=== PATIENT | female | born 1960 | race Two or more races ===

== ENCOUNTER 2021-10-25 08:43 | Outpatient (REF) | payer MEDICAID, SELFPAY ==
--- NOTE | ~2021-10-25 | XR_ITS ---
EXAMINATION: XR KNEE, RIGHT CLINICAL INFORMATION: Bilateral knee pain. COMPARISON: Radiograph dated 12/23/2010. TECHNIQUE: AP, lateral, tunnel, and sunrise views of the right knee. FINDINGS: Bones and soft tissues are normal. No fracture or joint effusion. Alignment is anatomic. Joint spaces are well maintained. No abnormal soft tissue calcification. XR/XR knee LT 4V IMPRESSION: Normal right knee. EXAMINATION: XR KNEE, LEFT CLINICAL INFORMATION: As above. COMPARISON: Regressed dated 12/23/2010. TECHNIQUE: AP, lateral, tunnel, and sunrise views of the left knee. FINDINGS: Bones and soft tissues are normal. No fracture or joint effusion. Alignment is anatomic. Joint spaces are well maintained. No abnormal soft tissue calcification. IMPRESSION: Normal left knee.
--- NOTE | ~2021-10-25 | XR_ITS ---
EXAMINATION: XR KNEE, RIGHT CLINICAL INFORMATION: Bilateral knee pain. COMPARISON: Radiograph dated 12/23/2010. TECHNIQUE: AP, lateral, tunnel, and sunrise views of the right knee. FINDINGS: Bones and soft tissues are normal. No fracture or joint effusion. Alignment is anatomic. Joint spaces are well maintained. No abnormal soft tissue calcification. XR/XR knee RT 4V IMPRESSION: Normal right knee. EXAMINATION: XR KNEE, LEFT CLINICAL INFORMATION: As above. COMPARISON: Regressed dated 12/23/2010. TECHNIQUE: AP, lateral, tunnel, and sunrise views of the left knee. FINDINGS: Bones and soft tissues are normal. No fracture or joint effusion. Alignment is anatomic. Joint spaces are well maintained. No abnormal soft tissue calcification. IMPRESSION: Normal left knee.
--- NOTE | ~2021-10-25 | XR_ITS ---
EXAMINATION: XR TIBIA AND FIBULA, LEFT CLINICAL INFORMATION: Swelling, mass and lump. COMPARISON: None TECHNIQUE: AP and lateral views of the left tibia and fibula were obtained. FINDINGS: The bones and soft tissues are normal. No fracture. No osseous lesions. No radiopaque foreign body is seen. XR/XR tibia fibula LT 2V IMPRESSION: Normal left tibia and fibula. No obvious mass lesion is noted. There is no radiopaque foreign body seen.
--- NOTE | ~2021-10-25 | XR_ITS ---
EXAMINATION: XR LUMBOSACRAL SPINE CLINICAL INFORMATION: Lumbago and sciatica. COMPARISON: Radiographs dated 08/25/2018. TECHNIQUE: AP and lateral views of the lumbar spine and lateral view of the lumbosacral junction. FINDINGS: There is bony demineralization. Vertebral body heights and alignment are normal. The disc spaces are well-maintained. No acute fracture or spondylolisthesis is seen. This multi-level marked lower thoracic and mild lumbar spondylosis, stable from prior. The posterior elements are intact. The paravertebral soft tissues are unremarkable. XR/XR lumbar spine 2-3V IMPRESSION: 1. No acute fracture or spondylolisthesis is seen. 2. The lumbar disc spaces are well-maintained. 3. There is multi-level thoracolumbar spondylosis. 4. There is bony demineralization.
== END 2021-10-25 08:44 | disposition home or self-care (01) ==
LOC: HO.XRAY 08:43
PROVIDERS: PCP Internal Medicine; Visit Provider Internal Medicine
DX: M25.561 Pain in right knee (principal); M25.562 Pain in left knee; M54.41 Lumbago with sciatica, right side; M54.42 Lumbago with sciatica, left side; R22.42 Localized swelling, mass and lump, left lower limb
CPT/HCPCS: 72100; 73564; 73590

== ENCOUNTER 2021-11-22 10:09 | Outpatient (REF) | payer MEDICAID, SELFPAY ==
--- NOTE | ~2021-11-22 | MM_ITS ---
EXAMINATION: MM SCREENING DIGITAL BREAST TOMOSYNTHESIS, BILATERAL CLINICAL INFORMATION: Screening. Asymptomatic. The lifetime risk of breast cancer based on the Tyrer-Cuzick Model is 5.2%. COMPARISON: Mammography: May 31, 2019 and studies dating back to March 15, 2012 TECHNIQUE: Digital breast tomosynthesis is performed in both the craniocaudal and mediolateral oblique views along with computer-aided detection (CAD). Synthesized 2D images are generated from the tomosynthesis. FINDINGS: There are scattered areas of fibroglandular density (ACR BI-RADS breast composition Category b). There are no significant masses, abnormal calcifications, or other abnormalities. MM/MM tomosynthesis screening BI IMPRESSION: There are no significant changes from prior study. ASSESSMENT: BI-RADS 1: Negative RECOMMENDATION: Routine annual mammography screening. This patient's information was entered into a reminder system with a target due date for their next mammogram.
== END 2021-11-22 10:10 | disposition home or self-care (01) ==
LOC: HO.MAMMO 10:09
PROVIDERS: PCP Internal Medicine; Visit Provider Internal Medicine
DX: Z12.31 Encounter for screening mammogram for malignant neoplasm of breast (principal)
CPT/HCPCS: 77063; 77067

== ENCOUNTER → 2022-07-26 13:12 | Outpatient (REF) | payer MEDICAID, SELFPAY ==
--- NOTE | 2022-07-26 13:15 | CA_ITS ---
Transthoracic Echocardiogram Patient (Last, First, Middle): Sonya Elena, Gender: Female Date of : 1960 Age: 61 Procedure Date: 07/26/2022 Procedure Type: Transthoracic Echocardiogram Location: OP Height: 154. cm Weight: 88.91 kg BSA: 1.86 m2 Heart Rate: 72 bpm BP: 120 / 70 mmHg Value Stream Manager: KATIE Referring MD: Ashwini Johnson MD Symptoms: PULMONARY VALVE DISORDER I37.0 Study Quality: Adequate ECG Rhythm: Sinus Conclusions: - The left ventricular systolic function is low normal. The calculated ejection fraction is 53% by biplane method. - There is mild calcification of the aortic valve. - There is mild mitral valve regurgitation. - There is mild tricuspid valve regurgitation. - There is mild pulmonary valve stenosis. Findings Left Ventricle Normal left ventricular cavity size. There is normal left ventricular wall thickness. The left ventricular systolic function is low normal. The calculated ejection fraction is 53% by biplane method. There is no evidence of regional wall motion abnormalities. E/E prime ratio is >15, consistent with elevated filling pressures. Evidence suggests grade I (mild) diastolic dysfunction. Right Ventricle Normal right ventricular cavity size and systolic function. Atria Both atria are normal in size. Aortic Valve There is a normal trileaflet aortic valve. There is mild calcification of the aortic valve. There is no aortic valve stenosis. There is no aortic valve regurgitation. Mitral Valve The mitral valve appears normal. There is mild mitral valve regurgitation. There is no mitral valve stenosis. Pulmonic Valve There is no pulmonic valve regurgitation. There is mild stenosis. Peak PV gradient is calculated at 23 mmHg. Tricuspid Valve Normal tricuspid valve structure. There is mild tricuspid valve regurgitation. There is no evidence of pulmonary hypertension. Great Vessels The asc aorta is normal in size. Small plaque is seen in the sino tubular ridge. Venous The inferior vena cava is normal in size and collapses greater than 50% with inspiration. Pericardium/Pleural There is no evidence of pericardial effusion. Prior Study Comparison Changes noted compared to prior study dated: 04/13/2015. Pulmonic stenosis gradients lower than prior study. Underestimation possible. Measurements 2D Linear Measurements IVSd: 0.84 0.6-0.9/0.6-1.0 cm LVIDd: 4.44 3.9-5.3/4.2-5.9 cm LVIDd Index: 2.39 2.4-3.2/2.2-3.1 cm/m2 LVIDs: 3.19 2.0-3.6 cm LVPWd: 1.27 0.7-1.1 cm LA Diam: 3.30 2.7-3.8/3.0-4.0 cm LAIDs Index: 1.77 1.5-2.3 cm/m2 LV Mass: 200.55 67-162/88-224 g LV Mass Index: 107.82 43-95/49-115 g/m2 LVOT Diam: 1.90 3.0+(-)1.3 cm 2D Systolic Function EF 4C: 51.00 >55% EF 2C: 56.80 >55% EF BiP: 52.50 >55% Mitral Valve MV Pk E: 1.05 MV PK A: 0.97 MV Decel Time: 197.00 E/A: 1.10 E'Lateral: 6.53 E'Medial: 5.66 E/E' Med: 18.60 E/E' Lat: 16.10 PHT: 58.00 MVA PHT: 3.79 Decel Dale: 5.32 Aortic Valve AoV Pk Chacorta: 1.41 AoV Mn Chacorta: 1.00 AoV VTI: 0.32 AoV Pk Grad: 8.00 Aov Mn Grad: 5.00 ANA Cont.VTI: 1.95 LVOT LVOT Pk Chacorta: 1.00 LVOT Mn Chacorta: 0.75 LVOT VTI: 0.22 LVOT Pk Grad: 4.00 LVOT Mn Grad: 2.00 LVOT Diam: 1.90 LVOT Area: 2.84 Diastolic Function MV Pk E: 1.05 MV Pk A: 0.97 E/A: 1.10 E'Medial: 5.66 E/E' Med: 18.60 E' Laterial: 6.53 E/E' Lat: 16.10 Right Ventricle TAPSE (mm): 18.30 TVS' Chacorta: 12.40 Tricuspid Valve TR Pk Chacorta: 2.48 TR Pk Grad: 25.00 RA Press: 3.00 RVSP: 28.00 Great Vessels Aorta Sinus of Valsalva: 3.20 2.0-3.5 cm Ao Asc: 3.00 2.1-3.4 cm Pulmonary Valve PV Pk Chacorta: 2.39 PV Min Chacorta: 1.71 Peak PV Grad: 23.00 PV Mn Grad: 13.00 Shunting QP:QS: 0.90 Updated in Other Vendor System with Status of Final Santhosh Hensley MD electronically signed on 07/27/2022 11:52:07 AM with status of Final
== END ==
LOC: HO.CARD 13:12
PROVIDERS: Visit Provider Internal Medicine
DX: I37.0 Nonrheumatic pulmonary valve stenosis (principal)
CPT/HCPCS: 93306

== ENCOUNTER → 2022-11-01 09:50 | Outpatient (BNVA) | payer MEDICAID, SELFPAY | PROVIDERS: PCP Internal Medicine; Visit Provider Physician Assistant | DX: Z12.11 Encounter for screening for malignant neoplasm of colon (principal); Z78.9 Other specified health status | CPT/HCPCS: 99202 ==

== ENCOUNTER 2022-11-24 11:31 | Outpatient (REF) | payer MEDICAID, SELFPAY ==
--- NOTE | ~2022-11-24 | MM_ITS ---
EXAMINATION: MM SCREENING DIGITAL BREAST TOMOSYNTHESIS, BILATERAL CLINICAL INFORMATION: Screening. Asymptomatic. The lifetime risk of breast cancer based on the Tyrer-Cuzick Model is 3.9%. COMPARISON: Mammography: This study is compared with prior exams dating back to 2018. TECHNIQUE: Digital breast tomosynthesis is performed in both the craniocaudal and mediolateral oblique views along with computer-aided detection (CAD). Synthesized 2D images are generated from the tomosynthesis. FINDINGS: There are scattered areas of fibroglandular density (ACR BI-RADS breast composition Category b). There are no significant masses, abnormal calcifications, or other abnormalities. MM/MM tomosynthesis screening BI IMPRESSION: No mammographic evidence of malignancy. ASSESSMENT: BI-RADS BI-RADS 1 - Negative RECOMMENDATION: Routine annual mammography screening. 1 year F/U This examination should not preclude the clinical evaluation of a suspicious palpable abnormality. This patient's information was entered into a reminder system with a target due date for their next mammogram.
== END 2022-11-24 11:32 | disposition home or self-care (01) ==
LOC: HO.MAMMO 11:31
PROVIDERS: PCP Internal Medicine; Visit Provider Internal Medicine
DX: Z12.31 Encounter for screening mammogram for malignant neoplasm of breast (principal)
CPT/HCPCS: 77063; 77067

== ENCOUNTER → 2022-11-24 12:15 | Outpatient (BNV) | payer MEDICAID, SELFPAY | PROVIDERS: PCP Internal Medicine; Visit Provider Radiology Diagnostic Radiology | DX: Z12.31 Encounter for screening mammogram for malignant neoplasm of breast (principal) | CPT/HCPCS: 77063; 77067 ==

== ENCOUNTER 2022-12-27 09:26 | Outpatient (AMB) | payer MEDICAID, SELFPAY ==
[2022-12-27 09:27] VITALS: BP 122/68; PULSE 64; BMI 42.7
--- NOTE | 2022-12-27 09:27 | A.OFFVIS_ITS ---
Intake Vital Signs 12/27/22 09:27 Height 5 ft Weight 218 lb 7.649 oz BMI 42.7 BP 122/68 Blood Pressure Location Lt brachial Position Sitting Pulse 64 Pulse Source Pulse Oximeter Intake Visit Reasons: DM/lvm Intake Note: New patient present today for Diabetes Mellitus. Referred by PCP. Last Diabetic Eye exam: 2020 Last Podiatry Visit: None Random Glucose: 99 mg/dl HgA1C: 8.4 % French Binder Required: Yes French Binder Language: Kinyarwanda Information Interpreted: non-clinical & clinical Accompanied by: Self / Same As Patient Allergies metformin Adverse Reaction (Unknown, Verified 12/27/22 09:31) GI upset Medication List - Last Reconciled 12/27/22 by Tucker Godoy MD aspirin (Adult Low Dose Aspirin) 81 mg PO DAILY atorvastatin 20 mg PO BEDTIME cholecalciferol (vitamin D3) 10 mcg PO DAILY dulaglutide (Trulicity) 1.5 mg subcut QWEEK empagliflozin (Jardiance) 25 mg PO QAM insulin glargine (Lantus U-100 Insulin) 35 units subcut QPM lisinopril 20 mg PO DAILY peg-electrolyte soln 420 gram 240 mL PO ONCE PRN 1 day HPI HPI Comments History of Present Illness Details 62 YO F who is seen in consultation for T2DM at the request of PCP. Initially diagnosed with T2DM in since 2000 . Saw endo many yrs ago Was initially started on treatment with metformin.Caused GI upset Current regimen Jardiance 25 mg QD. Lantus 35 units Trulicity 1.5 mg Qwkly Checks sugars sporadically. There 3 blood sugars present in the meter Average sugar: 119 Range: 84-192 Most recent A1C 8.4, . Family history of T2DM in son, moter, sister- Type 2 DM . Has eyes checked yearly, last eye exam 2 yrs ago Has appt 05/2023 , denies retinopathy. Has neuropathy, Not sees podiatry. Denies nephropathy, on MORGAN/ARB. . Has HLD, on statin. . Denies CAD. Yes Had diabetes education yrs ago . PFSH Surgical History Hx of colonoscopy Social History Household Members: Spouse Alcohol intake: never Patient Tobacco Use Status: Never used Tobacco Current occupational status: disabled Physical Exam Vital Signs: Last Vital Signs Pulse 64 12/27/22 09:27 BP 122/68 12/27/22 09:27 BMI result Body Mass Index 42.7 Absence of Cushingoid features. Absence of acromegalic features. Neck exam reveals nl size thyroid about 15 gms. No thyroid nodules palpable. No carotid bruits present. Lungs CTA. Heart S1 S2, Reg R/R. No M/R/ G. Skin exam reveals absence of vitiligo or acanthosis nigricans. Abdominal exam reveals Soft NT/ND with NA BS. No organomegaly present. Neck Other: . Extrem Other: Visual exam of foot performed. No ulcerations or open lesions. No onchomycosis, no callouses.Pulses 2 + distally Sensation intact to monofilament exam. Vibratory sensation sensed is intact with 128 Hz tuning fork Results AMB Hemoglobin A1c AMB Hemoglobin A1c 8.4 % Last Edit by Tomeka Peres on 12/27/22 09:49 Results Reviewed Results Reviewed: 12/27/22 09:39 Glucose, Whole Blood Routine Laboratory Last Values Glucose (Clinic) 99 mg/dL (60-115) 12/27/22 09:39 Hgb A1c (Clinic) 8.4 % (4.0-6.0) H 12/27/22 09:44 Assessment & Plan Assessment & Plan (1) Diabetes: Code(s): E11.9 - Type 2 diabetes mellitus without complications Plan: 62-year-old female with a history of type 2 diabetes being treated with Jardiance with poor glycemic control and no known microvascular or macrovascular complications. Plan is that the patient check her point cares pre and post meals. I offered to prescribe a Omayra 2 but the patient declined. I cannot make any adjustments to the patient's regimen today because of his lack of data. Will refer to internal audit senior manager and ui software engineer. Explained to patient with the help of the security intern the relationship a poor glycemic control to development and progression of complications Orders: Orders AMB Hemoglobin A1c Today E11.9 - Type 2 diabetes mellitus without complications Referrals Diabetes Education Referral E11.9 - Type 2 diabetes mellitus without complications Nutrition/Dietitian Referral E11.9 - Type 2 diabetes mellitus without complications Coding Level of Care Code New Pt Level 5 (90085) Diagnoses Diabetes E11.9 Time Spent (min) 60 Comment A total of 60 minutes was spent reviewing chart, seeing patient and dictating
[2022-12-27 09:43] LABS: Glucose, Whole Blood 99 mg/dL (60-115)
== END 2022-12-27 10:37 | disposition home or self-care (01) ==
PROVIDERS: PCP Internal Medicine; Visit Provider Internal Medicine Endocrinology, Diabetes & Metabolism
DX: E11.65 Type 2 diabetes mellitus with hyperglycemia (principal)
CPT/HCPCS: 99205

== ENCOUNTER → 2022-12-27 09:26 | Outpatient (BNVA) | payer MEDICAID, SELFPAY | PROVIDERS: PCP Internal Medicine; Visit Provider Internal Medicine Endocrinology, Diabetes & Metabolism | DX: E11.9 Type 2 diabetes mellitus without complications (principal); Z79.4 Long term (current) use of insulin | CPT/HCPCS: 82947; 83036; 99202 ==

== ENCOUNTER 2023-04-16 17:53 | Emergency (ER) | payer MEDICAID, SELFPAY ==
--- NOTE | ~2023-04-16 | XR_ITS ---
EXAMINATION: Right third toe CLINICAL INFORMATION: Third toe pain. COMPARISON: None available. TECHNIQUE: 3 views of the right toes were obtained. FINDINGS: There are no fractures or dislocations. No joint effusion is identified. No bone, joint or soft tissue abnormality is demonstrated. XR/XR toe RT min 2V IMPRESSION: Normal right third toe.
[2023-04-16 18:19] VITALS: BP 155/55; PULSE 83; RESP 20; TEMP 36.4; O2SAT 97; BMI 43.0
--- NOTE | 2023-04-16 18:21 | ED_ITS ---
HPI - Extremity Injury (Lower) General Chief Complaint: Skin/Abscess/Foreign Body Stated Complaint: RT middle toe inj Time Seen by Provider: 04/16/23 19:49 Source: patient and RN notes reviewed Mode of arrival: ambulatory Limitations: no limitations History of Present Illness HPI Narrative: This is a 62-year-old female, with a history of diabetes, presenting to the emergency department with complaints of bruising to right 3rd toe. She states that she accidentally dropped something on her toe 3 days ago. Reports pain with movement and with palpation. No fevers or chills. no other complaints or concerns at this time. MD complaint: foot injury Onset (ago): hour(s) Other symptoms: none Related Data Home Medications Medication Instructions Recorded Confirmed aspirin 81 mg tablet,delayed 81 mg PO DAILY 12/27/22 12/27/22 release (Adult Low Dose Aspirin) atorvastatin 20 mg tablet 20 mg PO BEDTIME 12/27/22 12/27/22 cholecalciferol (vitamin D3) 10 10 mcg PO DAILY 12/27/22 12/27/22 mcg (400 unit) capsule dulaglutide 1.5 mg/0.5 mL 1.5 mg subcut QWEEK 12/27/22 12/27/22 subcutaneous pen injector (Trulicity) empagliflozin 25 mg tablet 25 mg PO QAM 12/27/22 12/27/22 (Jardiance) insulin glargine 100 unit/mL 35 unit subcut QPM 12/27/22 12/27/22 subcutaneous solution (Lantus U-100 Insulin) lisinopril 20 mg tablet 20 mg PO DAILY 12/27/22 12/27/22 Previous Rx's Medication Instructions Recorded peg-electrolyte solution 420 gram 240 ml PO ONCE PRN laxative effect 11/01/22 oral solution 1 day #4,000 mL clindamycin HCl 150 mg capsule 150 mg PO TID 7 days #21 caps 02/23/23 sulfamethoxazole 800 1 tab PO BID 7 days #14 tabs 02/23/23 mg-trimethoprim 160 mg tablet (Bactrim DS) acetaminophen 500 mg tablet 500 mg PO Q6H PRN pain #30 tabs 04/16/23 (Tylenol Extra Strength) Allergies Allergy/AdvReac Type Severity Reaction Status Date / Time metformin AdvReac Unknown GI upset Verified 12/27/22 09:31 Review of Systems Review of Systems: Yes all other systems are reviewed and are negative [facility] Past Medical History Attestation statement: The following information was validated with the patient. Surgical History Hx of colonoscopy Social History Social History Household Members: Spouse Alcohol intake: never Patient Tobacco Use Status: Never used Tobacco Current occupational status: disabled Physical Exam Vital Signs: Vital Signs: Last Vital Signs Temp 97.6 F 04/16/23 19:46 Pulse 73 04/16/23 19:46 Resp 18 04/16/23 19:46 BP 132/63 04/16/23 19:46 Pulse Ox 96 04/16/23 19:46 O2 Del Method Room Air 04/16/23 19:46 BMI result Body Mass Index 43.0 Const: Other: General: Awake, alert, and oriented X3. No acute distress. HEENT: Normal inspection CVS: Normal heart rate and rhythm. Pulses normal. Respiratory: No respiratory distress Skin: Warm, dry, no rashes noted to exposed skin. Normal skin color. Normal skin turgor. Extremities: Right 3rd digit ecchymosis with tenderness to palpation. No erythema, open wounds or sores. No evidence of infection Neuro: Oriented X 3. No motor deficit. No sensory deficit. Medical Decision Making Medical Decision Making MDM Narrative: This is a 21-ecyn-hwc-female, hx of diabetes, presenting to the emergency department for evaluation of right 3rd toe bruising. She states that she dropped a stereo on her toe 3 days ago. ecchymosis noted to the right 3rd toe with tenderness palpation. Xray obtained revealing no fracture. Sxs consistent with contusion. Advised to closely monitor region. Pt given return precautions. Pt understands and agrees with plan. Stable for d/c. Differential Diagnosis Differential Diagnoses: The differential diagnosis associated with the presentation includes Fracture, contusion, sprain, strain Radiology Impression Discussion of test interpretation with radiology: I have reviewed the radiologist's reading. Radiologist Impression: EXAMINATION: Right third toe CLINICAL INFORMATION: Third toe pain. COMPARISON: None available. TECHNIQUE: 3 views of the right toes were obtained. FINDINGS: There are no fractures or dislocations. No joint effusion is identified. No bone, joint or soft tissue abnormality is demonstrated. XR/XR toe RT min 2V IMPRESSION: Normal right third toe. Dictated By: Miguel Ángel Araujo MD Discharge Plan Discharge Clinical Impression: Contusion of toe of right foot Patient Disposition: Home, Self-Care Instructions: Foot Contusion (ED) Additional Instructions: Sonya was seen today for discoloration of her toe. This is consistent with a bruise As she accidentally dropped something onto her toe. This does not appear to be infected. X-rays do not show a fracture. She may take tylenol as needed for symptoms. Please keep close eye on toe, please return if any new new or worsening symptoms occur including but not limited to redness, swelling, fevers or chills. Mar?a fue vista hoy por la decoloraci?n del dedo del pie. [place] es consistente con un hematoma porque accidentalmente elvira? caer algo en duarte dedo del pie. Deborah no parece estar infectado. Las radiograf?as no muestran chandler fractura. Est? atento a romero pies y regrese si presenta alg?n s?ntoma nuevo o que empeora, incluidos, entre otros, enrojecimiento, hinchaz?n, fiebre o escalofr?os. Prescriptions: New acetaminophen [Tylenol Extra Strength] 500 mg tablet 500 mg PO Q6H PRN (Reason: pain) Qty: 30 0RF No Action clindamycin HCl 150 mg capsule 150 mg PO TID 7 Days Qty: 21 0RF sulfamethoxazole-trimethoprim [Bactrim DS] 800-160 mg tablet 1 tab PO BID 7 Days Qty: 14 0RF peg-electrolyte soln 420 gram recon soln 240 ml PO ONCE PRN (Reason: laxative effect) 1 Days Qty: 4000 0RF Rx Instructions: Start at 6:00pm the evening before procedure, drink one 8oz glass every 15 minutes until complete aspirin [Adult Low Dose Aspirin] 81 mg tablet,delayed release (DR/EC) 81 mg PO DAILY atorvastatin 20 mg tablet 20 mg PO BEDTIME Jardiance 25 mg tablet 25 mg PO QAM lisinopril 20 mg tablet 20 mg PO DAILY cholecalciferol (vitamin D3) 10 mcg (400 unit) capsule 10 mcg PO DAILY insulin glargine [Lantus U-100 Insulin] 100 unit/mL solution 35 unit subcut QPM Trulicity 1.5 mg/0.5 mL pen injector 1.5 mg subcut QWEEK Interventions: ED Discharge Assessment Last Done: 04/16/23 20:11 Discharge Date/Time: 04/16/23 20:11
[2023-04-16 19:46] VITALS: BP 132/63; PULSE 73; RESP 18; TEMP 36.4; O2SAT 96
== END 2023-04-16 20:11 | disposition home or self-care (01) ==
PROVIDERS: Emergency Provider Internal Medicine; PCP Internal Medicine
DX: S90.121A Contusion of right lesser toe(s) without damage to nail, initial encounter (principal); Y29.XXXA Contact with blunt object, undetermined intent, initial encounter; Y93.9 Activity, unspecified; Y92.9 Unspecified place or not applicable; Y99.9 Unspecified external cause status
CPT/HCPCS: 73660; 99282; 99283

== ENCOUNTER 2023-06-20 11:05 | Outpatient (REF) | payer MEDICAID, SELFPAY ==
--- NOTE | ~2023-06-20 | XR_ITS ---
EXAMINATION: XR LUMBOSACRAL SPINE CLINICAL INFORMATION: Pain of 6 months duration, without trauma. COMPARISON: Lumbar spine radiographs dated 10/17/2021. TECHNIQUE: AP, bilateral oblique and lateral views of the lumbar spine and lateral view of the lumbosacral junction. FINDINGS: There is bony demineralization. There is a mild to moderate rotatory dextroscoliosis. There is a transitional lumbar vertebra, with sacralization of the L5 vertebral body and a rudimentary L5-S1 disc. Adopting this numbering methodology, there is a 4 mm anterolisthesis at L3-L4. The remaining disc spaces are relatively well-maintained. There is multi-level mild to moderate thoracolumbar spondylosis. There is facet arthropathy at L3-L4 and L4-L5. The paravertebral soft tissues are unremarkable. XR/XR lumbar spine 2-3V IMPRESSION: 1. There is transitional lumbar methodology. Please note numbering methodology, as methods may vary. 2. There is moderate degenerative disc disease at L3-L4. 3. There is multi-level mild to moderate thoracolumbar spondylosis. 4. There is facet arthropathy at L3-L4 and L4-L5. 5. There is a mild to moderate lumbar rotatory dextroscoliosis.
[2023-06-20 13:37] LABS: Basophils Absolute Auto 0.1 X10*3/uL (0.0-0.2); Basophils Percent Auto 0.9 % (0-2); Eosinophils Percent Auto 0.5 % (0-4); Hematocrit 46.1 % (37.0-47.0); Hemoglobin 14.7 g/dl (12.0-16.0); Imm Gran Abs Auto 0.02 X10*3/uL (0.00-0.03); Imm Gran Pct Auto 0.3 % (0.0-0.4); Lymphocytes Absolute Auto 1.7 X10*3/uL (1.2-4.9); Lymphocytes Percent Auto 22.4 % (20-40); MANUAL DIFF FLAG SCAN; Mean Corpuscular HGB Conc 31.9 g/dl (31.0-35.0); Mean Corpuscular Hemoglobin 26.3 pg (27.0-33.0); Mean Corpuscular Volume 82.3 fL (80.0-98.0); Monocytes Absolute Auto 0.4 X10*3/uL (0.1-1.2); Monocytes Percent Auto 5.9 % (2-11); Neutrophils Absolute Auto 5.3 x10*3/uL (2.0-8.3); PLT CLUMP 1; Red Cell Distribution Width 14.5 % (11.0-16.0); SCAN SMEAR FLAG 1
[2023-06-20 13:38] LABS: White Blood Count 7.5 X10*3/uL (4.8-10.8)
[2023-06-20 13:56] LABS: Mean Platelet Volume 12.3 fL (9.4-12.3); Platelet Count 176 X10*3/uL (160-400); SLIDE REVIEW VERIFIED
[2023-06-20 14:20] LABS: Alanine Aminotransferase 23 U/L (0-31); Alkaline Phosphatase 69 U/L (39-117); Anion Gap 12 (12-20); Aspartate Amino Transferase 32 U/L (5-31); Bilirubin Total 0.2 mg/dL (0.0-1.0); Blood Urea Nitrogen 18 mg/dL (9-16); Calcium 9.7 mg/dL (8.4-10.2); Carbon Dioxide 29 mmol/L (22-29); Chloride 105 mmol/L (96-108); Cholesterol 219 mg/dL (<200); Estimated Glomerular Filt Rate > 60; Glucose Random 180 mg/dL (60-115); HDL Cholesterol 72 mg/dL (>40); LDL Cholesterol Calculated 114 mg/dL (<100); Potassium 5.1 mmol/L (3.3-5.1); Sodium 141 mmol/L (135-145); Triglycerides 167 mg/dL (<150)
[2023-06-20 14:29] LABS: TSH reflex Free T4 1.72 uIU/mL (0.32-4.0)
== END 2023-06-20 11:06 | disposition home or self-care (01) ==
LOC: HO.HHCL 11:05
PROVIDERS: Visit Provider Nurse Practitioner Family
DX: E11.49 Type 2 diabetes mellitus with other diabetic neurological complication (principal); M54.16 Radiculopathy, lumbar region
CPT/HCPCS: 36415; 72100; 80053; 80061; 84443; 85025

== ENCOUNTER 2023-08-08 11:58 | Outpatient (REF) | payer MEDICAID, SELFPAY ==
--- NOTE | ~2023-08-08 | US_ITS ---
EXAMINATION: US LOWER EXTREMITY DUPLEX, BILATERAL CLINICAL INFORMATION: Leg numbness/claudication TECHNIQUE: Real-time ultrasound and Doppler techniques (integrating B-mode 2-D vascular images, Doppler spectral analysis and color flow Doppler imaging) were utilized to interrogate the lower extremities. COMPARISON: None FINDINGS: RIGHT LEG: Common femoral artery: 112 cm/s, biphasic Profunda femoris artery: 129 cm/s, biphasic Superficial femoral artery (proximal): 134 cm/s, biphasic Superficial femoral artery (mid): 97 cm/s, biphasic Superficial femoral artery (distal): 92 cm/s, biphasic Popliteal artery: 104 cm/s, Triphasic Anterior tibial artery: 95 cm/s, biphasic Posterior tibial artery: 67 cm/s, biphasic Peroneal artery: 40 cm/s, biphasic Dorsalis pedis artery: 93 cm/s, biphasic LEFT LEG: Common femoral artery: 112 cm/s, biphasic Profunda femoris artery: 106 cm/s, biphasic Superficial femoral artery (proximal): 113 cm/s, biphasic Superficial femoral artery (mid): 98 cm/s, biphasic Superficial femoral artery (distal): 70 cm/s, biphasic Popliteal artery: 102 cm/s, biphasic Anterior tibial artery: 81 cm/s, biphasic Posterior tibial artery: 66 cm/s, biphasic Peroneal artery: 43 cm/s, biphasic Dorsalis pedis artery: 58 cm/s, biphasic US/US arterial duplex LE BI IMPRESSION: 1. Mild right lower extremity peripheral vascular disease. 2. There is no evidence of any hemodynamically significant lower extremity arterial disease by pressure, waveform or duplex Doppler criteria at rest.
== END 2023-08-08 11:59 | disposition home or self-care (01) ==
LOC: HO.US 11:58
PROVIDERS: PCP Internal Medicine; Visit Provider Internal Medicine
DX: I73.9 Peripheral vascular disease, unspecified (principal); R20.0 Anesthesia of skin; E11.65 Type 2 diabetes mellitus with hyperglycemia; E11.42 Type 2 diabetes mellitus with diabetic polyneuropathy; Z79.4 Long term (current) use of insulin
CPT/HCPCS: 93925

== ENCOUNTER 2023-11-21 12:00 | Emergency (ER) | payer MEDICAID, SELFPAY ==
--- NOTE | ~2023-11-21 | XR_ITS ---
Indication: Lateral pain, swelling, fall EXAMINATION: Left shoulder, left knee, right ankle, right foot. Comparison left knee dated 10/25/2021 2 views of the left shoulder do not demonstrate evidence for an acute fracture or dislocation. 4 views of the left knee demonstrate a radiopaque foreign body giant believe is in the medial anterior soft tissues. This is linear and measures 6 mm. No evidence for an acute fracture or dislocation.. This is approximately 4 mm deep to the skin. 2 detail views of the right ankle demonstrate transverse fracture of the distal fibula. Mildly distracted. Fracture line is occurring below the level of the plafond. Soft tissue swelling is seen laterally. Spurring at the level of the insertion of the plantar aponeuroses on the calcaneus 3 views of the right foot proper does not demonstrate convincing evidence for an acute fracture or dislocation distally. XR/XR knee LT 4V IMPRESSION: Multiple studies. Distracted Transverse fracture of the distal fibula below the level the plafond Once again linear Foreign body which could represent the end of the needle within the medial soft tissues of the left knee.
--- NOTE | ~2023-11-21 | XR_ITS ---
Indication: Lateral pain, swelling, fall EXAMINATION: Left shoulder, left knee, right ankle, right foot. Comparison left knee dated 10/25/2021 2 views of the left shoulder do not demonstrate evidence for an acute fracture or dislocation. 4 views of the left knee demonstrate a radiopaque foreign body giant believe is in the medial anterior soft tissues. This is linear and measures 6 mm. No evidence for an acute fracture or dislocation.. This is approximately 4 mm deep to the skin. 2 detail views of the right ankle demonstrate transverse fracture of the distal fibula. Mildly distracted. Fracture line is occurring below the level of the plafond. Soft tissue swelling is seen laterally. Spurring at the level of the insertion of the plantar aponeuroses on the calcaneus 3 views of the right foot proper does not demonstrate convincing evidence for an acute fracture or dislocation distally. XR/XR shoulder LT min 2V IMPRESSION: Multiple studies. Distracted Transverse fracture of the distal fibula below the level the plafond Once again linear Foreign body which could represent the end of the needle within the medial soft tissues of the left knee.
--- NOTE | ~2023-11-21 | XR_ITS ---
Indication: Lateral pain, swelling, fall EXAMINATION: Left shoulder, left knee, right ankle, right foot. Comparison left knee dated 10/25/2021 2 views of the left shoulder do not demonstrate evidence for an acute fracture or dislocation. 4 views of the left knee demonstrate a radiopaque foreign body giant believe is in the medial anterior soft tissues. This is linear and measures 6 mm. No evidence for an acute fracture or dislocation.. This is approximately 4 mm deep to the skin. 2 detail views of the right ankle demonstrate transverse fracture of the distal fibula. Mildly distracted. Fracture line is occurring below the level of the plafond. Soft tissue swelling is seen laterally. Spurring at the level of the insertion of the plantar aponeuroses on the calcaneus 3 views of the right foot proper does not demonstrate convincing evidence for an acute fracture or dislocation distally. XR/XR foot RT min 3V IMPRESSION: Multiple studies. Distracted Transverse fracture of the distal fibula below the level the plafond Once again linear Foreign body which could represent the end of the needle within the medial soft tissues of the left knee.
--- NOTE | ~2023-11-21 | XR_ITS ---
Indication: Lateral pain, swelling, fall EXAMINATION: Left shoulder, left knee, right ankle, right foot. Comparison left knee dated 10/25/2021 2 views of the left shoulder do not demonstrate evidence for an acute fracture or dislocation. 4 views of the left knee demonstrate a radiopaque foreign body giant believe is in the medial anterior soft tissues. This is linear and measures 6 mm. No evidence for an acute fracture or dislocation.. This is approximately 4 mm deep to the skin. 2 detail views of the right ankle demonstrate transverse fracture of the distal fibula. Mildly distracted. Fracture line is occurring below the level of the plafond. Soft tissue swelling is seen laterally. Spurring at the level of the insertion of the plantar aponeuroses on the calcaneus 3 views of the right foot proper does not demonstrate convincing evidence for an acute fracture or dislocation distally. XR/XR ankle RT min 3V IMPRESSION: Multiple studies. Distracted Transverse fracture of the distal fibula below the level the plafond Once again linear Foreign body which could represent the end of the needle within the medial soft tissues of the left knee.
--- NOTE | 2023-11-21 12:26 | ED_ITS ---
HPI - General Adult General Chief complaint: Extremity Injury, Lower Stated complaint: Foot pain Time Seen by Provider: 11/21/23 16:29 Source: patient, family () and industrial design engineer (urdu) Mode of arrival: ambulatory Limitations: language barrier (urdu) History of Present Illness ED Provider: BEATRIZ LEE PA-C HPI narrative: 63-year-old [place]yanese-speaking female with past medical history significant for diabetes presents to the ED today for evaluation of right foot/ankle pain and right knee pain s/p slip and fall on Sunday (5 days ago). Denies head strike or LOC. Not on anticoagulation. Admits to pain with bearing weight on the right lower extremity. Has been able to ambulate with discomfort. Typically ambulates independently at baseline. Additionally endorses left shoulder pain since the fall. She has not been taking any [id number]-[id number] pain medications. Denies fever, chills, numbness/tingling/weakness of the extremities, neck or back pain. drop forge hand utilized throughout visit to communicate with patient. Related Data Home Medications ?Medication ?Instructions ?Recorded ?Confirmed aspirin 81 mg tablet,delayed 81 mg PO DAILY 12/27/22 12/27/22 release (Adult Low Dose Aspirin) atorvastatin 20 mg tablet 20 mg PO BEDTIME 12/27/22 12/27/22 cholecalciferol (vitamin D3) 10 10 mcg PO DAILY 12/27/22 12/27/22 mcg (400 unit) capsule dulaglutide 1.5 mg/0.5 mL 1.5 mg subcut QWEEK 12/27/22 12/27/22 subcutaneous pen injector (Trulicity) empagliflozin 25 mg tablet 25 mg PO QAM 12/27/22 12/27/22 (Jardiance) insulin glargine 100 unit/mL 35 unit subcut QPM 12/27/22 12/27/22 subcutaneous solution (Lantus U-100 Insulin) lisinopril 20 mg tablet 20 mg PO DAILY 12/27/22 12/27/22 Previous Rx's ?Medication ?Instructions ?Recorded peg-electrolyte solution 420 gram 240 ml PO ONCE PRN laxative effect 11/01/22 oral solution 1 day #4,000 mL clindamycin HCl 150 mg capsule 150 mg PO TID 7 days #21 caps 02/23/23 sulfamethoxazole 800 1 tab PO BID 7 days #14 tabs 02/23/23 mg-trimethoprim 160 mg tablet (Bactrim DS) acetaminophen 500 mg tablet 500 mg PO Q6H PRN pain #30 tabs 04/16/23 (Tylenol Extra Strength) naproxen 500 mg tablet 500 mg PO Q8-12H PRN pain #20 tabs 11/21/23 walker #1 ea 11/21/23 Allergies Allergy/AdvReac Type Severity Reaction Status Date / Time No Known Allergies Allergy Verified 11/21/23 12:36 Review of Systems Review of Systems: Constitutional: No fever, chills, fatigue, night sweats, weight changes ENT/Mouth: No ear pain, hearing loss, nasal congestion, sinus pain, rhinorrhea, sore throat Eyes: No eye pain, swelling, redness, vision changes, discharge Cardio: No chest pain, palpitations, CAMPOS, orthopnea, peripheral edema Pulm: No SOB, cough, sputum, wheezing, dyspnea, hemoptysis GI: No nausea, vomiting, hematemesis, abdominal pain, diarrhea, constipation, hematochezia, melena : No irregular bleeding, dysuria, frequency, urgency, hesitancy, hematuria, flank pain, urinary flow changes, urinary incontinence or retention MSK: No back pain, neck pain, joint pain, myalgias, +left shoulder pain, +right knee pain, +right ankle/foot pain Skin: No lesions, rashes Neuro: No weakness, numbness, paresthesias, LOC, dizziness, headache Psych: No anxiety/panic, depression, SI/HI, AH/VH All other systems reviewed and are negative. [facility] Past Medical History Attestation statement: The following information was validated with the patient. Source: old records reviewed and nursing notes reviewed Surgical History Hx of colonoscopy Social History Social History Household Members: Spouse Alcohol intake: never Patient Tobacco Use Status: Never used Tobacco Advance Directives: No Advance Directives Information Provided: Yes Do you have a plan to hurt others: No Plan Current occupational status: disabled Physical Exam ED Vital Signs: Vital Signs - 24 hr 11/21/23 12:28 11/21/23 16:13 07/24/24 18:55 Temperature 98 F 97.8 F 97.8 F Pulse Rate 88 78 77 Respiratory Rate 18 16 18 Blood Pressure 156/75 H 151/82 H 160/91 H Pulse Oximetry 98 99 98 Oxygen Delivery Method Room Air Room Air Room Air BMI result Body Mass Index 38.5 Patient hypertensive, vitals otherwise WNL Const General: cooperative, healthy appearing, comfortable and no acute distress Orientation/consciousness: patient oriented x3 Limitations: no limitations HENNE Head: Yes normal to inspection, Yes No palpable skull fracture present, Yes normocephalic, Yes atraumatic, No Tellez's sign, No raccoon eyes and No periorbital ecchymosis Eyes General: appearance normal, both eyes and all related structures Pupils: Equal, round and reactive pupils present EOM: EOMs intact bilaterally Neck Other: No cervical midline spinous tenderness or step-off deformity Neck: Yes normal visual inspection Chest Chest palpation & inspection: normal inspection of the chest and normal palpation of entire chest wall Resp Effort & Inspection: normal respiratory effort and able to speak in complete sentences Auscultation: clear to auscultation bilaterally Cardio Rate: regular rate Rhythm: regular rhythm GI Inspection: Yes normal to inspection and No abdominal wall ecchymosis Palpation (GI): Soft to palpation and nontender Back/Spine/Pelvis Other: No midline spinous tenderness or step off deformity. No paraspinal muscle tenderness. Skin Other: See below Neuro Other: Strength 5/5 intact throughout.? No saddle anesthesia.? Sensation intact to light touch.? Neurovascular intact distally.? Antalgic gait General: patient oriented x3 Cranial nerves: Yes Equal, round and reactive pupils present Extrem Other: + noted swelling and ecchymosis to right ankle, primarily over the lateral aspect over the lateral malleolus. Tender to palpation. No palpable warmth or deformity. 2+ DP/PT pulse intact. + right knee without noted swelling or overlying skin changes. no deformity. nontender to palpation. 2+ popliteal pulse intact. no calf tenderness. no pitting edema. + left shoulder without noted swelling or overlying skin changes. Tender to palpation of glenohumeral joint. Full ROM intact with pain elicited on abduction. 2+ radial/ ulnar pulse intact. Course Course Course Narrative: This is a rapid medical exam performed by Gladys Diaz NP: Additional HPI, ROS, PE not included below will be deferred to primary provider. Patient is a 63-year-old [place]yanese speaking female with DM presenting with complaint of right foot and ankle pain as well as left knee pain after a slip and fall Sunday afternoon. Swelling and erythema to lateral ankle. Also pain to L shoulder, tenderness to glenohumeral joint. Plan: xrays Reevaluation(s) Reevaluation #1: 9256 -- x-ray left shoulder does not reveal acute fracture or dislocation. X-ray of left knee shows radiopaque foreign body within the medial anterior soft tissues measuring approximately 6 mm. This may be consistent with needle. I did question patient regarding this and she does not recall retaining any sore of foreign body. It is unclear when this could have been retained however this is unlikely related to recent fall. I am unable to palpable this on my examination. Advised patient to follow up with general surgery for further exploration. X-ray right ankle shows transverse fracture of the distal fibula, mildly distracted with fracture line occurring below the level of the plafond. Soft tissue swelling seen laterally. There is spurring at the level of the insertion of the plantar aponeurosis on the calcaneus. X-ray of right foot does not demonstrate fracture or dislocation. >> Case discussed with on-call ortho PA, Dinorah Desai, who upon review of films recommends walking boot with weight bearing as tolerated for distal fibula fracture. Will place walking boot and trial ambulation. 190-- Patient ambulating with steady but antalgic gait. She was provided with crutches which she has been utilizing to ambulate to the bathroom. I also provided her with a written prescription for walker. Advised to follow-up with orthopedic doctor this week. Referral provided. I offered patient PT/case management consultation however she feels as though she can care for herself at home assisted by her . Declining consultation at this time. I do feel patient is safe for discharge at this time with outpatient follow-up. Naproxen sent to pharmacy. Patient provided with prescription for walker. Patient has remained stable throughout ED visit today. Discussed worrisome signs and symptoms and when to return to the ED. All questions answered at this time. Patient is agreeable with disposition and stable for discharge. Medications Administered Discontinued Medications Generic Name Dose Route Start Last Admin Trade Name Freq PRN Reason Stop Dose Admin Acetaminophen 975 mg 11/21/23 17:14 11/21/23 17:49 Acetaminophen 325 Mg Tablet PO 11/21/23 17:15 975 mg ONCE ONE Administration Procedures Orthopedic Splinting/Casting Injury #1: Side: right Lower Extremity Injury Location: ankle Lower Extremity Immobilizer: boot orthosis Other Orthopedic Equipment: crutches and walker Medical Decision Making Medical Decision Making MDM Narrative: 63-year-old [place]ese-speaking female with past medical history significant for diabetes presents to the ED today for evaluation of right foot/ankle pain and right knee pain s/p slip and fall on Sunday (5 days ago). Patient hypertensive, vitals otherwise WNL. He is nontoxic-appearing and in no acute distress. Lying comfortably on the exam bed. on exam, noted swelling and ecchymosis to right ankle, primarily over the lateral aspect over the lateral malleolus. Tender to palpation. No palpable warmth or deformity. 2+ DP/PT pulse intact. right knee without noted swelling or overlying skin changes. no deformity. nontender to palpation. 2+ popliteal pulse intact. no calf tende rness. no pitting edema. left shoulder without noted swelling or overlying skin changes. Tender to palpation of glenohumeral joint. Full ROM intact with pain elicited on abduction. 2+ radial/ ulnar pulse intact. Differential diagnosis includes contusion, MSK sprain/strain, fracture. Unlikely dislocation, neurovascular compromise, threat to limb, compartment syndrome. Plan for imaging, pain control, and re-evaluation. Differential Diagnosis Differential Diagnoses: The differential diagnosis associated with the presentation includes as above Admission/Observation Not indicated. Consult Healthcare Provider Management of the patient was discussed with: Park Guard (orthopedic MAKI Desai) Independent Interpretation I performed an independent interpretation of an: Plain X-Ray Interpretation: X-ray right foot/ankle showing distal fibula fracture, agree with radiologist's interpretation. X-ray left knee without fracture, agree with radiologist's interpretation. X-ray left shoulder without fracture, agree with radiologist's interpretation. Radiology Impression Discussion of test interpretation with radiology: I have reviewed the radiologist's reading. Radiologist Impression: EXAMINATION: Left shoulder, left knee, right ankle, right foot. Comparison left knee dated 10/25/2021 2 views of the left shoulder do not demonstrate evidence for an acute fracture or dislocation. 4 views of the left knee demonstrate a radiopaque foreign body giant believe is in the medial anterior soft tissues. This is linear and measures 6 mm. No evidence for an acute fracture or dislocation.. This is approximately 4 mm deep to the skin. 2 detail views of the right ankle demonstrate transverse fracture of the distal fibula. Mildly distracted. Fracture line is occurring below the level of the plafond. Soft tissue swelling is seen laterally. Spurring at the level of the insertion of the plantar aponeuroses on the calcaneus 3 views of the right foot proper does not demonstrate convincing evidence for an acute fracture or dislocation distally. XR/XR shoulder LT min 2V IMPRESSION: Multiple studies. Distracted Transverse fracture of the distal fibula below the level the plafond Once again linear Foreign body which could represent the end of the needle within the medial soft tissues of the left knee. Independent Historian Clinical information obtained from an independent historian. History obtained from or confirmed by: Spouse () External Record Review External record reviewed: Inpatient record Prescription Management I considered prescription management with: Pain Medication Chronic Conditions Patient?s care impacted by: Diabetes Social Determinants Patient?s care significantly limited by Social Determinants of Health including: Other Social Determinant of Health Critical Care Time Critical Care Time Critical Care Time: No Discharge Plan Discharge Clinical Impression: Fracture of distal end of fibula Patient Disposition: Home, Self-Care Instructions: Ankle Fracture (ED), Crutch Instructions (ED) Additional Instructions: The x-ray of your left shoulder is normal. The x-ray of your left knee shows foreign body within the soft tissues. I was unable to palpate this on exam. You need to follow up with General surgery for further investigation. You have been provided with a referral. Call them to make an appointment. They will not call you. The xray of your right foot/ ankle reveals distal fibula fracture. You have been provided a walking boot. You may bear weight on the right leg as tolerated. Please elevate your ankle with 2-3 pillows while lying down. Make sure it is elevated above heart level. Ice the ankle as needed to help with swelling. You were provided crutches in the emergency department however a walker may be better suited for you. You were provided with a physical prescription for a walker which you can take to any medical supply store. Please follow-up with our orthopedic team this week. Call them tomorrow morning to make an outpatient follow-up appointment. They will not call you. Return with new or worsening symptoms. In the case of an emergency call 911. Prescriptions: New (ROCHLELE) lucy Galarzac See Rx Instructions .Route Qty: 1 0RF Rx Instructions: As directed naproxen 500 mg tablet 500 mg PO Q8-12H PRN (Reason: pain) Qty: 20 0RF No Action clindamycin HCl 150 mg capsule 150 mg PO TID 7 Days Qty: 21 0RF sulfamethoxazole-trimethoprim [Bactrim DS] 800-160 mg tablet 1 tab PO BID 7 Days Qty: 14 0RF acetaminophen [Tylenol Extra Strength] 500 mg tablet 500 mg PO Q6H PRN (Reason: pain) Qty: 30 0RF peg-electrolyte soln 420 gram recon soln 240 ml PO ONCE PRN (Reason: laxative effect) 1 Days Qty: 4000 0RF Rx Instructions: Start at 6:00pm the evening before procedure, drink one 8oz glass every 15 minutes until complete aspirin [Adult Low Dose Aspirin] 81 mg tablet,delayed release (DR/EC) 81 mg PO DAILY atorvastatin 20 mg tablet 20 mg PO BEDTIME Jardiance 25 mg tablet 25 mg PO QAM lisinopril 20 mg tablet 20 mg PO DAILY cholecalciferol (vitamin D3) 10 mcg (400 unit) capsule 10 mcg PO DAILY insulin glargine [Lantus U-100 Insulin] 100 unit/mL solution 35 unit subcut QPM Trulicity 1.5 mg/0.5 mL pen injector 1.5 mg subcut QWEEK Referrals: [facility] [place] General Surgeons [Provider Group] - 5 days (4 views of the left knee demonstrate a radiopaque foreign body giant believe is in the medial anterior soft tissues. This is linear and measures 6 mm. No evidence for an acute fracture or dislocation.. This is approximately 4 mm deep to the skin.) [facility] [place] Orthopedic Surgeons [Provider Group] - 3 days (2 detail views of the right ankle demonstrate transverse fracture of the distal fibula. Mildly distracted. Fracture line is occurring below the level of the plafond. Soft tissue swelling is seen laterally.) Ashwini Johnson MD [Primary Care Provider] - Interventions: ED Discharge Assessment Last Done: 11/21/23 18:55 Discharge Date/Time: 11/21/23 18:56 Print Language: Guyanese
[2023-11-21 12:28] VITALS: BP 156/75; PULSE 88; RESP 18; TEMP 36.6; O2SAT 98; BMI 38.5
[2023-11-21 16:13] VITALS: BP 151/82; PULSE 78; RESP 16; TEMP 36.6; O2SAT 99
[2023-11-21] MEDS: Acetaminophen 325 MG TABLET 975 MG PO (17:49)
[2023-11-21 18:55] VITALS: BP 160/91; PULSE 77; RESP 18; TEMP 36.6; O2SAT 98
== END 2023-11-21 18:56 | disposition home or self-care (01) ==
PROVIDERS: Emergency Provider Emergency Medicine; PCP Internal Medicine
DX: S82.831A Other fracture of upper and lower end of right fibula, initial encounter for closed fracture (principal); W01.0XXA Fall on same level from slipping, tripping and stumbling without subsequent striking against object, initial encounter; M25.562 Pain in left knee; M25.512 Pain in left shoulder; Y93.9 Activity, unspecified; Y92.9 Unspecified place or not applicable; Y99.9 Unspecified external cause status
CPT/HCPCS: 73030; 73564; 73610; 73630; 99283; 99284

== ENCOUNTER 2023-11-26 10:35 | Outpatient (AMB) | payer MEDICAID, SELFPAY ==
--- NOTE | 2023-11-26 10:57 | A.OFFVIS_ITS ---
Vital Signs 11/26/23 11:02 Height 5 ft 1 in Weight 205 lb 0.478 oz BMI 38.7 BP 160/92 H Blood Pressure Location Lt brachial Position Sitting Intake Visit Reasons: foreign body left knee Intake Note: Patient is seen in office for ER follow up visit, following foreign body of the left knee. Pt c/o: had a fall and was told she still has some glass in the left knee, admits to pain, not on antbx area is bruise, red and swollen ED: 11/21/23 Management Instructor Required: Yes Management Instructor Language: Dot Net Developer Services: Management Instructor Present Management Instructor Name: Estefany RODRIGUEZ Information Interpreted: non-clinical & clinical Accompanied by: Spouse Allergies No Known Allergies Allergy (Verified 11/26/23 11:01) HPI Comments Details: Patient presents with her to evaluate a left knee contusion status post fall this weekend. There was a question of a foreign body in the area but the patient states she did not have any penetrating trauma to the area. Chart was reviewed and patient evaluated [facility] Surgical History Hx of colonoscopy Social History Household Members: Spouse Alcohol intake: never Patient Tobacco Use Status: Never used Tobacco Current occupational status: disabled Physical Exam Vital Signs: Last Vital Signs BP 160/92 H 11/26/23 11:02 BMI result Body Mass Index 38.7 Extrem Other: Ecchymotic area measuring approximately 15 x 10 cm of the right lower inner thigh. Extremities grossly neurovascularly intact. No evidence of any infection or penetrating site. Assessment & Plan Assessment & Plan (1) Contusion of left knee: Code(s): S80.02XA - Contusion of left knee, initial encounter Category: Medical Plan At present, no need to further investigate regarding foreign body. The question of the x-ray finding is probably an old issue and not related to the patient's recent trauma. All questions answered. Should the patient develop progressive worsening symptoms, the been instructed to call the office will otherwise follow-up p.r.n.. All questions answered. Coding Level of Care Code New Pt Level 4 (08608) Diagnoses Contusion of left knee S80.02XA
[2023-11-26 11:02] VITALS: BP 160/92; BMI 38.7
== END 2023-11-26 11:10 | disposition home or self-care (01) ==
PROVIDERS: PCP Internal Medicine; Referring Provider Internal Medicine; Visit Provider Surgery
DX: S80.02XA Contusion of left knee, initial encounter (principal)
CPT/HCPCS: 99203

== ENCOUNTER → 2023-11-26 10:35 | Outpatient (BNVA) | payer MEDICAID, SELFPAY | PROVIDERS: PCP Internal Medicine; Visit Provider Surgery | DX: S80.02XD Contusion of left knee, subsequent encounter (principal); X58.XXXD Exposure to other specified factors, subsequent encounter | CPT/HCPCS: 99202 ==

== ENCOUNTER 2023-11-29 14:06 | Outpatient (AMB) | payer MEDICAID, SELFPAY ==
--- NOTE | 2023-11-29 14:14 | MHC.OFFVIS ---
Intake Visit Reasons: FC- Fracture of distal end of fibula Intake Note: Sonya is a 63 year old female who presents today with a walking boot and her for a evaluation of her right ankle injury, DOI 11/17/23. Patient reports she slipped and fell. She is still having a lot of pain on the lateral aspect of the foot. Having numbness in her toes when she is wearing her boot. Revenue Enforcement Collection Agent Required: Yes Revenue Enforcement Collection Agent Language: Merchandise Carrier Services: Revenue Enforcement Collection Agent Present Revenue Enforcement Collection Agent Name: JENNIFER Chi/JOYCE Information Interpreted: clinical only Allergies No Known Allergies Allergy (Verified 11/29/23 14:18) HPI HPI FC- Fracture of distal end of fibula: Details: 3-year-old female, who is Tunisian speaking, presents in the office today, as a new patient, for an evaluation of right foot/ankle pain. The patient presented to the ED on 11/21/23 status post a slip and fall on 11/16/23. X-rays were obtained. She was placed in a walking boot. ? ? While in the office today, the patient presents in a walking boot. She reports a slip and fall that led to her injuring the right ankle/foot. She reports a lot of pain along the lateral aspect of the right foot. She endorses numbness in the right toes when wearing the boot. ? ? Patient has a significant medical history of diabetes mellitus.?? ? Patient is accompanied in the office today by her . ? PFSH Surgical History Hx of colonoscopy Social History Household Members: Spouse Alcohol intake: never Patient Tobacco Use Status: Never used Tobacco Current occupational status: disabled Review of Systems Const All systems reviewed & are unremarkable except as noted in HPI and below Physical Exam Const General: cooperative and no acute distress Orientation/consciousness: patient oriented x3 Resp Effort & Inspection: normal respiratory effort and able to speak in complete sentences Cardio Peripheral pulses: Peripheral pulses 2+ throughout Skin General skin exam: no rashes or lesions noted Neuro General: patient oriented x3 Extrem Other: Right ankle: Moderate edema over the lateral malleolus; accompanied by tenderness to palpation over the medial and lateral malleolus. Slightly able to dorsiflex and plantarflex. Able to move all digits. Sensation intact. Pedal pulse intact. ? Office Procedures Fracture Care Fracture Billing Code: Fracture Billing Code Assessment & Plan Assessment & Plan (1) Closed fracture of right distal fibula: Code(s): S82.831A - Other fracture of upper and lower end of right fibula, initial encounter for closed fracture Category: Medical Plan Ms. Ha Charles is a 3-year-old female, who is Tunisian speaking, presents in the office today, as a new patient, for an evaluation of right foot/ankle pain. The patient presented to the ED on 11/21/23 status post a slip and fall on 11/16/23. X-rays were obtained. She was placed in a walking boot. ? ? While in the office today, the patient presents in a walking boot. She reports a slip and fall that led to her injuring the right ankle/foot. She reports a lot of pain along the lateral aspect of the right foot. She endorses numbness in the right toes when wearing the boot. ? ? Patient has a significant medical history of diabetes mellitus.?? ? Patient is accompanied in the office today by her .? ? The patient will continue to wear the walking boot. She was offered a cane while in the office today; however, due to her insurance not covering it she will obtain this elsewhere. She will be referred to physical therapy. Follow-up will be in four weeks, or sooner if needed. ? ? X-rays of the right ankle which were obtained while in the office today and were reviewed by me, Dinorah Desai PA-C, redemonstrated distal fibula fracture with no displacement. ? ? X-rays of the right foot/ankle, obtained on 11/21/23, revealed:?? Multiple studies. Distracted Transverse fracture of the? distal fibula below the level the plafond.? Orders: Orders XR ankle RT min 3V Today M25.579 - Pain in unspecified ankle and joints of unspecified foot PT Evaluation and Treatment Today S82.839A - Other fracture of upper and lower end of unspecified fibula, initial encounter for closed fracture Patient Instructions: Scribed by Dyan Perkins medical transcriber, for Dinorah Desai PA-C on 11/29/2023 at 2:48 pm, EST.? Coding Level of Care Code New Pt Level 4 (82934) Diagnoses Closed fracture of right distal fibula S82.831A CPT Codes Fracture Care - Fracture Billing Code: Fracture Billing Code ([id number])
== END 2023-11-29 14:35 | disposition home or self-care (01) ==
LOC: HO.HOS 14:06
PROVIDERS: PCP Internal Medicine; Visit Provider Physician Assistant
DX: S82.831A Other fracture of upper and lower end of right fibula, initial encounter for closed fracture (principal)
CPT/HCPCS: 99204

== ENCOUNTER 2023-11-29 14:06 | Outpatient (REF) | payer MEDICAID, SELFPAY ==
--- NOTE | ~2023-11-29 | XR_ITS ---
EXAMINATION: XR ANKLE, RIGHT CLINICAL INFORMATION: Pain. COMPARISON: Prior radiographs, most recently 11/21/2023. TECHNIQUE: AP, lateral, and mortise views of the right ankle. FINDINGS: Bony mineralization is normal. The ankle mortise is intact. There is stable mild displacement of a transverse fracture of the distal right fibula. No dislocation is seen. There is no right ankle joint effusion. Boehler's angle is normal. There is a moderate plantar calcaneal spur. There is mild degenerative change of the dorsal midfoot. There is persistent soft tissue swelling adjacent to the lateral malleolus. XR/XR ankle RT min 3V IMPRESSION: There is stable mild displacement of a transverse fracture of the distal right fibula. Electronically signed by: Jose Francisco Delgadillo MD 12/24/2023 12:16 PM EDT
== END 2023-11-29 14:07 | disposition home or self-care (01) ==
LOC: HO.HOSX 14:06
PROVIDERS: PCP Internal Medicine; Visit Provider Physician Assistant
DX: S82.831A Other fracture of upper and lower end of right fibula, initial encounter for closed fracture (principal); W01.0XXA Fall on same level from slipping, tripping and stumbling without subsequent striking against object, initial encounter; Y93.9 Activity, unspecified; Y92.9 Unspecified place or not applicable; Y99.9 Unspecified external cause status
CPT/HCPCS: 73610; 99212

== ENCOUNTER 2023-12-17 09:00 | Outpatient (RCR) | payer MEDICAID, SELFPAY ==
--- NOTE | 2023-12-07 13:37 | MHC.PT.EP ---
[facility] [place] [facility] [place] [facility] [place] Office [address] [place] [address] [phone] F: [phone] F: [phone] F: [phone] F: [phone] Physical Therapy Plan of Care Date of Evaluation: 12/05/23 Date of Surgery: Diagnosis: Fracture of distal end of fibula Assessment: Pt is a 63yo female who presents s/p fibular fracture, difficulty bearing weight, poor ankle strength and ROM. Skilled PT indicated reduce pain/edema, promote normal ROM and ankle strength, leading to PLOF. Pt is in agreement with POC and is motivated to participate. Frequency and Duration: The patient will be seen 2x/week, x 6 weeks Short Term Goals: 1. In 3 weeks patient will improve AROM R ankle 10 degrees into dorsiflexion, eversion and inversion. 2. In 3 weeks, patient will be able to ambulate with SPC with equal step length, pain <2/10 in 3 weeks up to 200 feet. 3. Pt will be I with R ankle ROM exercises. Care Home Goals: 1. In 6 weeks patient will demonstrate normal ROM R ankle, MMT >=4/5. 2. In 6 weeks, patient will be able to ambulate without an AD, potentially as ASO if recommended with normal gait speed. 3. In 6 weeks, improve LEFS score by 20 points indicating reduced pain and improved function. Treatment Plan: Modalities to reduce pain, spasms and effusion. Manual therapy to restore motion and function. Therapeutic exercise to improve strength and flexibility. Neuromuscular re-education for posture and balance. Therapeutic activities to return to functional activities of daily living. Electronically signed by: Marichuy Wong PT, DPT Please sign and return to therapist. Thank you for your referral.
--- NOTE | 2023-12-25 10:40 | MHC.PT.DC ---
[facility] [place] [facility] [place] Office [place] Office [address] [place] [address] [facility] [phone] F: [phone] F: [phone] F: [phone] F: [phone] Physical Therapy Discharge Report Diagnosis: Fracture of distal end of R fibula Date of Surgery: Date of Evaluation: 12/05/23 Date of Discharge: 12/25/23 Treatments to Date: 3 Cancellations to Date: 1 No Shows to Date: 3 Discharge Status: Patient Elected to Stop Visit Non-compliance Discharge Summary: Sonya is being discharged today per our attendance policy after logging 1 cancel and 3 no shows. Electronically signed by: Horacio Bains PT. Please sign and return to therapist. Thank you for your referral.
== END 2023-12-25 10:40 | disposition home or self-care (01) ==
LOC: HO.PT 09:00
PROVIDERS: PCP Internal Medicine; Visit Provider Physician Assistant
DX: S82.831D Other fracture of upper and lower end of right fibula, subsequent encounter for closed fracture with routine healing (principal)
CPT/HCPCS: 97110; 97116; 97140; 97162

== ENCOUNTER 2023-12-27 11:31 | Outpatient (REF) | payer MEDICAID, SELFPAY ==
--- NOTE | ~2023-12-27 | XR_ITS ---
EXAMINATION: XR ANKLE, RIGHT CLINICAL INFORMATION: Pain in the ankles and joints of the right foot appear COMPARISON: 11/29/2023 TECHNIQUE: AP, lateral, and mortise views of the right ankle. FINDINGS: Again seen is a transverse Bustos A fracture of the right lateral malleolus. Alignment is not appreciably changed as compared to prior. No definite osseous bridging is identified, although subtle bone resorption along the fracture margin may be due to early changes of osseous healing. Ankle mortise is symmetric. Small marginal osteophytes. Joint space is well-preserved. Soft tissues are swollen. No new fractures. Moderate sized enthesopathic spur is present at the plantar fascial origin on the calcaneus. Small enthesopathic spur is present at the Achilles tendon insertion on the calcaneus. XR/XR ankle RT min 3V IMPRESSION: Unchanged alignment of the Bustos A fracture of the right lateral malleolus. No definite osseous bridging is identified. Electronically signed by: Dank Corona MD 01/02/2024 12:14 PM EDT
== END 2023-12-27 11:32 | disposition home or self-care (01) ==
LOC: HO.HOSX 11:31
PROVIDERS: PCP Internal Medicine; Visit Provider Physician Assistant
DX: M25.571 Pain in right ankle and joints of right foot (principal); S82.831D Other fracture of upper and lower end of right fibula, subsequent encounter for closed fracture with routine healing
CPT/HCPCS: 73610; 99212

== ENCOUNTER 2023-12-27 12:09 | Outpatient (AMB) | payer MEDICAID, SELFPAY ==
--- NOTE | 2023-12-27 12:33 | MHC.OFFVIS ---
Intake Visit Reasons: OV-Fracture of distal end of fibula-w/xray Intake Note: Sonya is a 63 year old female who presents today with a walking boot and her for a evaluation of her right distal fibula fx, DOI 11/17/23. Patient report her pain has gotten better a little bit but she still tends to have some pain around her ankle. Dynamometer Mechanic Services: Dynamometer Mechanic Present (Eliud ([id number])) Allergies No Known Allergies Allergy (Verified 12/27/23 12:42) HPI HPI OV-Fracture of distal end of fibula-w/xray: Details: 63-year-old female, who is Nepali speaking,?presents in the office today for a follow-up of a right distal fibula fracture, which occurred on 11/16/23 status post a slip and fall. I last saw the patient in the office on 11/29/23 when she was instructed to continue to wear the walking boot, and she was planning to obtain a walking cane at a different location. The patient was also referred to physical therapy.? ? While in the office today, the patient reports her pain has mildly improved, but she is still having some pain around the right ankle. ? ? Patient presents in the office today wearing the walking boot.? ? Patient has a significant medical history of diabetes mellitus.? ? Patient is accompanied in the office by her .? [facility] Medical History (Updated 12/19/23 @ 10:31 by Neida Jauregui RN) Diabetes Surgical History Hx of colonoscopy Social History Household Members: Spouse Alcohol intake: never Patient Tobacco Use Status: Never used Tobacco Current occupational status: disabled Review of Systems Const All systems reviewed & are unremarkable except as noted in HPI and below Physical Exam Const General: cooperative, healthy appearing and no acute distress Orientation/consciousness: patient oriented x3 Resp Effort & Inspection: normal respiratory effort and able to speak in complete sentences Cardio Rate: regular rate Peripheral pulses: Peripheral pulses 2+ throughout GI Palpation (GI): Soft to palpation Skin General skin exam: no rashes or lesions noted Lesions: no lesions Rashes: no rashes Neuro General: patient oriented x3 Extrem Other: Right ankle: Moderate edema over the lateral malleolus; accompanied by tenderness to palpation over the medial and lateral malleolus. Slightly able to dorsiflex and plantarflex. Able to move all digits. Sensation intact. Pedal pulse intact. ? Assessment & Plan Assessment & Plan (1) Closed fracture of right distal fibula: Code(s): S82.831A - Other fracture of upper and lower end of right fibula, initial encounter for closed fracture Category: Medical Plan Ms. aH Charles is a 63-year-old female, who is Nepali speaking,?presents in the office today for a follow-up of a right distal fibula fracture, which occurred on 11/16/23 status post a slip and fall. I last saw the patient in the office on 11/29/23 when she was instructed to continue to wear the walking boot, and she was planning to obtain a walking cane at a different location. The patient was also referred to physical therapy.? ? While in the office today, the patient reports her pain has mildly improved, but she is still having some pain around the right ankle. ? ? Patient presents in the office today wearing the walking boot.? ? Patient has a significant medical history of diabetes mellitus.? ? Patient is accompanied in the office by her .? ? The patient was instructed to attend physical therapy at her last appointment. She attended one session, then cancelled, and had three no shows. This led to the patient being discharged from PT. At this time, I would again recommend formal physical therapy due to the patient reporting her ankle is not improving. She was provided with a paper copy of the physical therapy prescription to go to any facility she wished to attend. We discussed a goal of discontinuing the boot in two weeks. Follow-up will be in six weeks, or sooner if needed. ? ? X-rays of the right ankle which were obtained while in the office today and were reviewed by me, Dinorah Desai PA-C, revealed routine healing of a right distal fibula fracture. ? Orders: Orders XR ankle RT min 3V Today M25.579 - Pain in unspecified ankle and joints of unspecified foot PT Evaluation and Treatment Today S82.831A - Other fracture of upper and lower end of right fibula, initial encounter for closed fracture Patient Instructions: Scribed by Dyan Perikns certified medical coding specialist, for Dinorah Desai PA-C on 12/27/2023 at 12:21 pm, EST.? Coding Level of Care Code Global (62628) Diagnoses Closed fracture of right distal fibula S82.831A
== END 2023-12-27 13:22 | disposition home or self-care (01) ==
PROVIDERS: PCP Internal Medicine; Visit Provider Physician Assistant
DX: S82.831A Other fracture of upper and lower end of right fibula, initial encounter for closed fracture (principal)
CPT/HCPCS: 99213

== ENCOUNTER → 2024-01-09 16:20 | Outpatient (RCR) | payer MEDICAID, SELFPAY ==
--- NOTE | 2022-01-18 13:36 | MHC.PT.EP ---
[facility] [place] [facility] [place] [facility] [place] [facility] [address] [place] [address] [phone] F: [phone] F: [phone] F: [phone] F: [phone] Physical Therapy Plan of Care Date of Evaluation: Date of Surgery: Diagnosis: spinal arthritis. Assessment: Pt is a 61 y/o Guatemalan speaking female who reports she has had chronic LBP though has has a new onset of LBP with B leg pain L > R over the past 3 months and is referred to PT for eval and treat of spinal OA who presents with lumbar dysfunction and B leg pain resulting in decreased tolerance for standing and walking, tolerating sitting for duration as well as disturbed sleep secondary to decreased core and B hip strength, decreased lumbar ROM, increased lumbar tissue tension and pain. Pt is deemed an appropriate candidate to receive skilled PT in order to address her physical limitations to improve her functional ability. Frequency and Duration: The patient will be seen 2x/ wk x 4 wks. Short Term Goals: Initiate HEP. Improve baseline pain to < 6/10; initial: 10/10. Information Management Officer Goals: I with home program. Pt will report LE ache associated with LBP abolished. Pt will be able to sit as long as shed like with anaged Sx; initial < 30 min. Pt will be able to walk 2 blocks with at most a little bit of difficulty; initial; quite a bit of difficulty. Treatment Plan: Modalities to reduce pain, spasms and effusion. Manual therapy to restore motion and function. Therapeutic exercise to improve strength and flexibility. Neuromuscular re-education for posture and balance. Therapeutic activities to return to functional activities of daily living. Electronically signed by: Horacio Bains PT. Please sign and return to therapist. Thank you for your referral.
== END | disposition home or self-care (01) ==
LOC: HO.PTCHIC 01-13 08:38
PROVIDERS: PCP Internal Medicine; Visit Provider Internal Medicine
DX: M47.819 Spondylosis without myelopathy or radiculopathy, site unspecified (principal)
CPT/HCPCS: 97110; 97162

== ENCOUNTER 2024-02-07 12:16 | Outpatient (AMB) | payer MEDICAID, SELFPAY ==
--- NOTE | 2024-02-07 12:51 | A.OFFVIS_ITS ---
Intake Visit Reasons: OV-Fracture of distal end of fibula-w/xray Intake Note: Sonya is a 63 year old female who presents today with a walking boot and her for a evaluation of her right distal fibula fx, DOI 11/17/23. Patient report she is doing well, at not moment no pain or discomfort. Law Writer Services: Law Writer Present (Lili ([id number])) Allergies No Known Allergies Allergy (Verified 02/07/24 12:52) HPI HPI OV-Fracture of distal end of fibula-w/xray: Details: 63-year-old female, who is Welsh speaking, presents in the office today for a follow-up of a right distal fibula fracture, which occurred on 11/16/23 status post a slip and fall. I last saw the patient in the office on 12/27/23 when she was provided a paper copy of the physical therapy prescription to go to any facility she wishes to attend and discussed a goal of discontinuing the boot in two weeks. While in the office today, the patient presents without the walking boot. She reports she is doing well with no pain or discomfort. The patient has a significant medical history of diabetes mellitus. [facility] Medical History (Updated 12/19/23 @ 10:31 by Neida Jauregui RN) Diabetes Surgical History Hx of colonoscopy Social History Household Members: Spouse Alcohol intake: never Patient Tobacco Use Status: Never used Tobacco Current occupational status: disabled Review of Systems Const All systems reviewed & are unremarkable except as noted in HPI and below Physical Exam Const General: cooperative, healthy appearing and no acute distress Orientation/consciousness: patient oriented x3 Resp Effort & Inspection: normal respiratory effort and able to speak in complete sentences Cardio Rate: regular rate Peripheral pulses: Peripheral pulses 2+ throughout GI Palpation (GI): Soft to palpation Skin General skin exam: no rashes or lesions noted Lesions: no lesions Rashes: no rashes Neuro General: patient oriented x3 Extrem Other: Right ankle: Moderate edema over the lateral malleolus; accompanied by tenderness to palpation over the medial and lateral malleolus. Slightly able to dorsiflex and plantarflex. Able to move all digits. Sensation intact. Pedal pulse intact. ? Assessment & Plan Assessment & Plan (1) Closed fracture of right distal fibula: Code(s): S82.831A - Other fracture of upper and lower end of right fibula, initial encounter for closed fracture Category: Medical Plan Ms. Ha Charles is a 63-year-old female, who is Welsh speaking, presents in the office today for a follow-up of a right distal fibula fracture, which occurred on 11/16/23 status post a slip and fall. I last saw the patient in the office on 12/27/23 when she was provided a paper copy of the physical therapy prescription to go to any facility she wishes to attend and discussed a goal of discontinuing the boot in two weeks. While in the office today, the patient presents without the walking boot. She reports she is doing well with no pain or discomfort. The patient has a significant medical history of diabetes mellitus. The patient discontinued the boot about 4 weeks ago. She has not attended physical therapy. There is no additional orthopedic intervention that is warranted at this time. Follow-up will be PRN, or sooner if needed. X-rays of the right ankle which were obtained while in the office today and were reviewed by me, Dinorah Desai PA-C, revealed: Routine healing of the right distal fibula fracture. Orders: Orders XR ankle RT min 3V Today M25.579 - Pain in unspecified ankle and joints of unspecified foot Patient Instructions: Scribed by Noris Jonas, medical office professional instructor, for Dinorah Desai PA-C on 02/07/24 at 1:07 pm EST. Coding Level of Care Code Est Pt Level 3 (85712) Diagnoses Closed fracture of right distal fibula S82.831A
== END 2024-02-07 13:08 | disposition home or self-care (01) ==
PROVIDERS: PCP Internal Medicine; Visit Provider Physician Assistant
DX: S82.831A Other fracture of upper and lower end of right fibula, initial encounter for closed fracture (principal)
CPT/HCPCS: 99212

== ENCOUNTER 2024-02-07 14:05 | Outpatient (REF) | payer MEDICAID, SELFPAY ==
--- NOTE | ~2024-02-07 | XR_ITS ---
EXAMINATION: XR ANKLE, RIGHT CLINICAL INFORMATION: Pain. COMPARISON: Radiograph right ankle 12/27/2023. TECHNIQUE: AP, lateral, and mortise views of the right ankle. FINDINGS: Increased soft tissue swelling adjacent to the lateral malleolus. Possible new cortical irregularity of the lateral talus immediately adjacent to the tip of the lateral malleolus. Stable appearance of Bustos A fracture of the lateral malleolus. Redemonstration of moderate sized enthesopathic spur at the plantar fascial origin on the calcaneus. XR/XR ankle RT min 3V IMPRESSION: 1. Possible new cortical irregularity of the lateral talus immediately adjacent to the tip of the lateral malleolus which could represent a small avulsion fracture. 2. Increased soft tissue swelling adjacent to the lateral malleolus. 3. Stable appearance of Bustos type A fracture of the lateral malleolus. Electronically signed by: Aurora Loyd MD 02/25/2024 03:25 PM EDT
== END 2024-02-07 14:06 | disposition home or self-care (01) ==
LOC: HO.HOSX 14:05
PROVIDERS: Visit Provider Physician Assistant
DX: M25.571 Pain in right ankle and joints of right foot (principal); S82.831D Other fracture of upper and lower end of right fibula, subsequent encounter for closed fracture with routine healing
CPT/HCPCS: 73610; 99212

== ENCOUNTER 2024-02-13 10:06 | Outpatient (REF) | payer MEDICAID, SELFPAY ==
[2024-02-13 12:25] LABS: Alanine Aminotransferase 23 U/L (0-31); Albumin Level 3.9 g/dL (3.5-5.0); Alkaline Phosphatase 74 U/L (39-117); Aspartate Amino Transferase 18 U/L (5-31); Bilirubin Direct 0.1 mg/dL (0.0-0.5); Bilirubin Total 0.3 mg/dL (0.0-1.0); Cholesterol 215 mg/dL (<200); HDL Cholesterol 59 mg/dL (>40); LDL Cholesterol Calculated 135 mg/dL (<100); Total Protein 6.9 g/dL (6.5-8.0); Triglycerides 108 mg/dL (<150)
== END 2024-02-13 10:07 | disposition home or self-care (01) ==
LOC: HO.HHCL 10:06
PROVIDERS: Visit Provider Internal Medicine
DX: E11.65 Type 2 diabetes mellitus with hyperglycemia (principal); Z79.4 Long term (current) use of insulin
CPT/HCPCS: 36415; 80061; 80076

== ENCOUNTER 2024-02-25 13:27 | Emergency (ER) | payer MEDICAID, SELFPAY ==
--- NOTE | ~2024-02-25 | XR_ITS ---
EXAMINATION: XR SHOULDER, LEFT CLINICAL INFORMATION: Pain. COMPARISON: Radiograph left shoulder 11/21/2023. TECHNIQUE: Three views of the left shoulder. FINDINGS: No acute fracture or subluxation. Mild degenerative osteoarthritis of the acromioclavicular joint. No abnormal soft tissue calcifications. Included left hemithorax is within normal limits. XR/XR shoulder LT min 2V IMPRESSION: 1. No acute fracture or subluxation. 2. Mild degenerative osteoarthritis of the acromioclavicular joint. Electronically signed by: Aurora Loyd MD 02/25/2024 03:21 PM EDT
[2024-02-25 13:55] VITALS: BP 150/100; PULSE 88; RESP 18; TEMP 36.6; O2SAT 98; BMI 39.7
--- NOTE | 2024-02-25 13:55 | ED_ITS ---
HPI - Extremity Injury (Lower) General Chief Complaint: General Medical Stated Complaint: L arm pain, bilateral leg pain Time Seen by Provider: 02/25/24 18:39 Related Data Home Medications ?Medication ?Instructions ?Recorded ?Confirmed aspirin 81 mg tablet,delayed 81 mg PO DAILY 12/27/22 11/26/23 release (Adult Low Dose Aspirin) atorvastatin 20 mg tablet 20 mg PO BEDTIME 12/27/22 11/26/23 cholecalciferol (vitamin D3) 10 10 mcg PO DAILY 12/27/22 11/26/23 mcg (400 unit) capsule dulaglutide 1.5 mg/0.5 mL 1.5 mg subcut QWEEK 12/27/22 11/26/23 subcutaneous pen injector (Trulicity) empagliflozin 25 mg tablet 25 mg PO QAM 12/27/22 11/26/23 (Jardiance) insulin glargine 100 unit/mL 35 unit subcut QPM 12/27/22 11/26/23 subcutaneous solution (Lantus U-100 Insulin) lisinopril 20 mg tablet 20 mg PO DAILY 12/27/22 11/26/23 Previous Rx's ?Medication ?Instructions ?Recorded peg-electrolyte solution 420 gram 240 ml PO ONCE PRN laxative effect 11/01/22 oral solution 1 day #4,000 mL clindamycin HCl 150 mg capsule 150 mg PO TID 7 days #21 caps 02/23/23 sulfamethoxazole 800 1 tab PO BID 7 days #14 tabs 02/23/23 mg-trimethoprim 160 mg tablet (Bactrim DS) acetaminophen 500 mg tablet 500 mg PO Q6H PRN pain #30 tabs 04/16/23 (Tylenol Extra Strength) naproxen 500 mg tablet 500 mg PO Q8-12H PRN pain #20 tabs 11/21/23 walker #1 ea 11/21/23 peg 3350-electrolytes 236 240 ml PO Q10M #4,000 mL 12/10/23 gram-22.74 gram-6.74 gram-5.86 gram solution Allergies Allergy/AdvReac Type Severity Reaction Status Date / Time No Known Allergies Allergy Verified 02/25/24 13:55 [facility] Past Medical History Medical History (Updated 02/27/24 @ 15:26 by MAKI Breen) Diabetes Surgical History Hx of colonoscopy Social History Social History Household Members: Spouse Alcohol intake: never Patient Tobacco Use Status: Never used Tobacco Advance Directives: No Advance Directives Information Provided: No Do you have a plan to hurt others: No Plan Current occupational status: disabled Physical Exam Vital Signs: Vital Signs: Last Vital Signs Temp 97.9 F 02/25/24 13:55 Pulse 88 02/25/24 13:55 Resp 18 02/25/24 13:55 BP 150/100 H 02/25/24 13:55 Pulse Ox 98 02/25/24 13:55 O2 Del Method Room Air 02/25/24 13:55 BMI result Body Mass Index 39.7 Course Course Course Narrative: This is a Rapid Medical Exam performed in triage by Isabela Mohr PA-C. Full HPI, ROS and PE to be performed by primary ED provider. 63-year-old female with a past medical history of diabetes, poor historian, presenting to the ED c/o bilateral LE pain from hips radiating to feet and left arm pain with difficulty moving x 1 mos. PE: + left shoulder without noted deformity. Tender to palpation. Limited ROM secondary to pain Plan: XR Discharge Plan Discharge Clinical Impression: Lower extremity pain, Arm pain, left Patient Disposition: Left W/O Completing Treatment Prescriptions: No Action clindamycin HCl 150 mg capsule 150 mg PO TID 7 Days Qty: 21 0RF sulfamethoxazole-trimethoprim [Bactrim DS] 800-160 mg tablet 1 tab PO BID 7 Days Qty: 14 0RF peg 3350-electrolytes 236-22.74-6.74 -5.86 gram recon soln 240 ml PO Q10M Qty: 4000 0RF Rx Instructions: use only water to dilute this. It may be prepared 2 days before procedure- put in the refrigerator. THE DAY BEFORE PROCEDURE STARTING AT 4pm- drink half. finish drinking remaining prep at 10pm. acetaminophen [Tylenol Extra Strength] 500 mg tablet 500 mg PO Q6H PRN (Reason: pain) Qty: 30 0RF (DME) walker Misc See Rx Instructions .Route Qty: 1 0RF Rx Instructions: As directed naproxen 500 mg tablet 500 mg PO Q8-12H PRN (Reason: pain) Qty: 20 0RF peg-electrolyte soln 420 gram recon soln 240 ml PO ONCE PRN (Reason: laxative effect) 1 Days Qty: 4000 0RF Rx Instructions: Start at 6:00pm the evening before procedure, drink one 8oz glass every 15 minutes until complete aspirin [Adult Low Dose Aspirin] 81 mg tablet,delayed release (DR/EC) 81 mg PO DAILY atorvastatin 20 mg tablet 20 mg PO BEDTIME Jardiance 25 mg tablet 25 mg PO QAM lisinopril 20 mg tablet 20 mg PO DAILY cholecalciferol (vitamin D3) 10 mcg (400 unit) capsule 10 mcg PO DAILY insulin glargine [Lantus U-100 Insulin] 100 unit/mL solution 35 unit subcut QPM Trulicity 1.5 mg/0.5 mL pen injector 1.5 mg subcut QWEEK Discharge Date/Time: 02/25/24 19:30
== END 2024-02-25 19:30 | disposition left against medical advice (07) ==
PROVIDERS: Emergency Provider Emergency Medicine; PCP Internal Medicine
DX: M79.605 Pain in left leg (principal); M79.604 Pain in right leg; M79.602 Pain in left arm; E11.9 Type 2 diabetes mellitus without complications; Z79.82 Long term (current) use of aspirin; Z79.02 Long term (current) use of antithrombotics/antiplatelets; Z79.85 Long-term (current) use of injectable non-insulin antidiabetic drugs; Z79.4 Long term (current) use of insulin; Z79.899 Other long term (current) drug therapy
CPT/HCPCS: 73030; 99281; 99283

== ENCOUNTER 2024-04-14 15:46 | Outpatient (REF) | payer MEDICAID, SELFPAY ==
--- NOTE | ~2024-04-14 | XR_ITS ---
EXAMINATION: XR RIGHT KNEE XR RIGHT ANKLE CLINICAL INFORMATION: Closed fracture of distal end of right tibia with routine healing, follow up tibial fracture, ankle pain and deformity. COMPARISON: Right knee 10/25/2021, right ankle 02/07/2024, 12/27/2023. TECHNIQUE: 4 views right knee, 4 views right ankle. FINDINGS: RIGHT KNEE: Moderate suprapatellar effusion. Minimal degenerative changes in the medial and patellofemoral compartments. RIGHT ANKLE: Soft tissue swelling particularly along the lateral aspect of the ankle. Redemonstration of a transverse Bustos A fracture of the lateral malleolus with some mild interval bridging callus formation and decreased conspicuity of fracture line. Moderate plantar calcaneal spur redemonstrated. XR/XR ankle RT min 3V IMPRESSION: Redemonstration of a transverse Bustos A fracture of the lateral malleolus with some mild interval bridging callus formation and decreased conspicuity of fracture line. Previously identified cortical irregularity of the lateral talus, immediately adjacent to the tip of the lateral malleolus appears similar. This study was presented today, April 15, 2024, for interpretation. Stat results provided at this time as requested by referring provider. Electronically signed by: Michelle Lockhart MD 04/15/2024 12:43 PM JES
--- NOTE | ~2024-04-14 | XR_ITS ---
EXAMINATION: XR RIGHT KNEE XR RIGHT ANKLE CLINICAL INFORMATION: Closed fracture of distal end of right tibia with routine healing, follow up tibial fracture, ankle pain and deformity. COMPARISON: Right knee 10/25/2021, right ankle 02/07/2024, 12/27/2023. TECHNIQUE: 4 views right knee, 4 views right ankle. FINDINGS: RIGHT KNEE: Moderate suprapatellar effusion. Minimal degenerative changes in the medial and patellofemoral compartments. RIGHT ANKLE: Soft tissue swelling particularly along the lateral aspect of the ankle. Redemonstration of a transverse Bustos A fracture of the lateral malleolus with some mild interval bridging callus formation and decreased conspicuity of fracture line. Moderate plantar calcaneal spur redemonstrated. XR/XR knee RT 4V IMPRESSION: Redemonstration of a transverse Bustos A fracture of the lateral malleolus with some mild interval bridging callus formation and decreased conspicuity of fracture line. Previously identified cortical irregularity of the lateral talus, immediately adjacent to the tip of the lateral malleolus appears similar. This study was presented today, April 15, 2024, for interpretation. Stat results provided at this time as requested by referring provider. Electronically signed by: Michelle Lockhart MD 04/15/2024 12:43 PM EST
== END 2024-04-14 15:47 | disposition home or self-care (01) ==
LOC: HO.HHCX 15:46
PROVIDERS: Visit Provider Internal Medicine
DX: S82.391D Other fracture of lower end of right tibia, subsequent encounter for closed fracture with routine healing (principal); S82.301D Unspecified fracture of lower end of right tibia, subsequent encounter for closed fracture with routine healing
CPT/HCPCS: 73564; 73610

== ENCOUNTER 2024-07-01 07:30 | Day surgery (SDC) | payer MEDICAID, SELFPAY ==
--- OUTSIDE RECORDS SUMMARY | 2024-06-24 16:17 | XMS_ITS | Encounter Summary ---
Author Organization [employer] Address [address] [facility] [address] [place] [address] Care Team Providers Care Dressing Machine Operator Name Role Phone Ashwini Johnson MD Primary Care Provider + Hector Dillon PharmD Unavailable [phone] Reason for Visit * Reason Onset Date Comments FYI 09/19/2023 Encounter Details Date Type Department Care Team ([facility] st Contact Info) Description 09/19/2023 Telephone [facility] [address], [place] [phone] Ashwini Johnson MD [address] [place], [place] [phone] FYI Social History Tobacco Use Types Packs/Day Years Used Date Smoking Tobacco: Never Smokeless Tobacco: Never Alcohol Use Standard Drinks/Week Comments Never 0 (1 standard drink = 0.6 oz pur e alcohol) Housing Stability Answer Date Recorded What is your housing situation today? I have housing today, but I am worried about losing housing in the future 02/12/[address] you li ve. Do you have problems with any of the following? None of the above 02/12/2023 Food Insecurity Answer Date Recorded Within the past 12 months, y ou worried that your food would run out before you got money to buy more: Never True 02/12/2023 Within the past 12 months,th e food you bought just didn't last and you didn't have enough money to get more: Never True Transportation Answer Date Recorded In the past 12 months, has l ack of transportation kept you from medical appts, meetings, work or from getting things needed for daily living? No 02/12/2023 Utilities Answer Date Recorded In the past 12 months, has t he electric, gas, oil or water company threatened to shut off services in your home? I am not sure 02/12/2023 Depression Answer Date Recorded Patient Health Questionnaire-2 Score 0 07/27/2023 Comments No Sex and Gender Information Value Date Recorded Sex Assigned at Female 02/27/2022 10:16 AM EDT Legal Sex Female 10:16 AM EDT Gender Identity Female 02/27/2022 10:16 AM EDT Sexual Orientation Straight 02/27/2022 10 :16 AM EDT documented as of this encounter Miscellaneous Notes * Telephone Encounter - Sophie Lucas - 09/19/2023 3:13 PM EDT Tc from [place] with [facility] will be faxing an evaluation summary form for pt to receive TRAINING DIRECTOR services. documented in this encounter Plan of Treatment Upcoming Encounters Date Type Department Care Team (Late st Contact Info) Description 07/22/2024 1:30 PM EDT Medication Management [facility] [address] [place] [phone] Hector Dillon PharmD [address] [place] [phone] 09/11/2024 11:15 AM EDT Office Visit [facility] [address] [place] [phone] Ashwini Johnson MD [address] [place] [address] documented as of this encounter Goals Goal Patient Goal Type Associated Problems Recent Progress Patient-Stated? Author Blood Pressure < 140/90 Blood Pressure 140/75(2024 3:03 PM EST) No Hector Dillon PharmD Hemoglobin A1c < 7 Result Component 8.7( 3:03 PM EST) No Hector Dillon PharmD documented as of this encounter Visit Diagnoses Not on filedocumented in this encounter Care Teams Dressing Machine Operator Relationship Specialty Start Date End Date Ashwini Johnson MD [address] [place] [address] PCP - General Family Medicine 12/11/17 Hector Dillon, AlbaD [address] [place] [address] Pharmacist Internal Medicine 07/19/23 documented as of this encounter
--- OUTSIDE RECORDS SUMMARY | 2024-06-24 16:17 | XMS_ITS | Encounter Summary ---
Author Organization [employer] Address [address] [facility] [address] [place] [address] Care Team Providers Care Irrigation Installation Specialist Name Role Phone Ashwini Johnson MD Primary Care Provider + Hector Dillon PharmD Unavailable [phone] Encounter Details Date Type Department Care Team (Late st Contact Info) Description 09/26/2023 Orders Only [facility] [address] [facility] [place] [address] ProviderTracey MD Social History Tobacco Use Types Packs/Day Years [...] AM EDT documented as of this encounter Plan of Treatment Upcoming Encounters Date Type Department Care Team (Late st Contact Info) Description 07/22/2024 1:30 PM EDT Medication Management [facility] [address] [place] [phone] Hector Dillon PharmD [address] [place] [phone] 09/11/2024 11:15 AM EDT Office Visit [facility] [address] [place] [phone] Ashwini Johnson MD [address] [place] [phone] documented as of this encounter Goals Goal Patient Goal Type Associated Problems Recent Progress Patient-Stated? Author Blood Pressure < 140/90 Blood Pressure 140/75(2024 3:03 PM EST) No Hector Dillon PharmD Hemoglobin A1c < 7 Result Component 8.7( 3:03 PM EST) No Hector Dillon PharmD documented as of this encounter Procedures Procedure Name Priority Date/Time Associated Diagnosis Comments HM COLONOSCOPY Routine 06/12/2019 8:41 AM EST documented in this encounter Results * Hm Colonoscopy (06/12/2019 8:41 AM EST) us Historical Provider HEALTH MAINTENANCE Final Result documented in this encounter Visit Diagnoses Not on filedocumented in this encounter Care Teams Irrigation Installation Specialist Relationship Specialty Start Date End Date Ashwini Johnson MD [address] [place] [phone] PCP - General Family Medicine 12/11/17 Hector Dillon PharmD [address] [place] [address] Pharmacist Internal Medicine 07/19/23 documented as of this encounter
--- OUTSIDE RECORDS SUMMARY | 2024-06-24 16:17 | XMS_ITS | Encounter Summary ---
Author Organization [facility] Address [address] [facility] [address] [place] [address] Care Team Providers Care Meat Processor Name Role Phone Ashwini Johnson MD Primary Care Provider + Hector Dillon PharmD Unavailable [phone] Reason for Visit * Reason Onset Date Comments Created In Error 01/17/2024 Encounter Details Date Type Department Care Team ([facility] st Contact Info) Description 01/17/2024 Telephone [facility] [address] [place], [place] [phone] Ashwini Johnson MD [address] [place], [place] [phone] Created In Error Social History Tobacco Use Types Packs/Day Years Used Date Smoking Tobacco: Never Smokeless Tobacco: Never Alcohol Use Standard Drinks/Week Comments Never 0 (1 standard drink = 0.6 oz pur e alcohol) Housing Stability Answer Date Recorded What is your housing situation today? I have derek maciel 11/20/[address] you li ve. Do you have problems with any of the following? None of the above 11/20/2023 Food Insecurity Answer Date Recorded Within the past 12 months, y ou worried that your food would run out before you got money to buy more: Never True 11/20/2023 Within the past 12 months,th e food you bought just didn't last and you didn't have enough money to get more: Never True Transportation Answer Date Recorded In the past 12 months, has l ack of transportation kept you from medical appts, meetings, work or from getting things needed for daily living? No 11/20/2023 Utilities Answer Date Recorded In the past 12 months, has t he electric, gas, oil or water company threatened to shut off services in your home? No 11/20/2023 Depression Answer Date Recorded Patient Health Questionnaire-2 Score 0 07/27/2023 Internet Access Answer Date Recorded Internet Access Q1 Yes 12/31/2023 Internet Access Q2 Not on file 12/31/2023 Comments No Sex and Gender Information Value [...] Description 07/22/2024 1:30 PM EDT Medication Management [facility] [address] [place] [phone] Hector Dillon PharmD [address] [place] [phone] 09/11/2024 11:15 AM EDT Office Visit [facility] [address] [place] [phone] Ashwini Johnson MD [address] [place] [phone] documented as of this encounter Goals Goal Patient Goal Type Associated Problems Recent Progress Patient-Stated? Author Blood Pressure < 140/90 Blood Pressure 140/75(2024 3:03 PM EST) No Hector Dillon PharmD Hemoglobin A1c < 7 Result Component 8.7( 3:03 PM EST) No Hector Dillon PharmD documented as of this encounter Visit Diagnoses Not on filedocumented in this encounter Care Teams Meat Processor Relationship Specialty Start Date End Date Ashwini Johnson MD [address] [place] [phone] PCP - General Family Medicine 12/11/17 Hector Dillon PharmD [address] [place] [address], [place] [address] Pharmacist Internal Medicine 07/19/23 documented as of this encounter
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
--- OUTSIDE RECORDS SUMMARY | 2024-06-24 16:17 | XMS_ITS | Encounter Summary ---
Author Organization [employer] Address [address] [facility] [address] [place] [address] Care Team Providers Care Rubber Tester Name Role Phone Ashwini Johnson MD Primary Care Provider + Hector Dillon PharmD Unavailable [phone] Reason for Visit * Reason Onset Date Comments Chart prep 06/13/2024 Encounter Details Date Type Department Care Team ([facility] st Contact Info) Description 06/13/2024 Telephone [facility] [address] [place], [place] [phone] Ashwini Johnson MD [address] [place], [place] [phone] Chart prep Social History Tobacco Use Types Packs/Day Years Used Date Smoking Tobacco: Never Passive Smoke Exposure: Never Smokeless Tobacco: Never Alcohol Use Standard Drinks/Week Comments Never 0 (1 standard drink = 0.6 oz pur e alcohol) Housing Stability Answer Date Recorded What is your housing situation today? I have dreek maceil 11/20/[address] you li [...] encounter Miscellaneous Notes * Telephone Encounter - Lisa Andrews MA - 06/13/2024 2:34 PM EST Chart Prep Labs: not done Images: done Vaccines due: yes Referrals: pending appt Screenings: colonoscopy , mammogram , eye exam Overdue care gaps: Glucose documented in this encounter Plan of Treatment Upcoming Encounters Date Type Department Care Team (Late st Contact Info) Description 07/22/2024 1:30 PM EDT Medication Management [facility] [address] [place] [phone] Hector Dillon PharmD [address] [place] [phone] 09/11/2024 11:15 AM EDT Office Visit [facility] [address] [place] [phone] Ashwini Johnson MD [address] [place] [phone] documented as of this encounter Goals Goal Patient Goal Type Associated Problems Recent Progress Patient-Stated? Author Blood Pressure < 140/90 Blood Pressure 140/75(2024 3:03 PM EST) No Hector Dillon, Harriet Hemoglobin A1c < 7 Result Component 8.7( 3:03 PM EST) No Dillon, Hector, PharmD documented as of this encounter Visit Diagnoses Not on filedocumented in this encounter Care Teams Rubber Tester Relationship Specialty Start Date End Date Ashwini Johnson MD [address] [place] [address] PCP - General Family Medicine 12/11/17 Hector Dillon, Harriet [address] [place] [phone] Pharmacist Internal Medicine 07/19/23 documented as of this encounter
--- OUTSIDE RECORDS SUMMARY | 2024-06-24 16:17 | XMS_ITS | Clinical Summary ---
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 06/12/2022 06/12/2019 Colorectal Cancer Screening 06/12/2022 Diabetes: Urine Protein Screening 09/19/2023 09/18/2022, 03/15/2022, 10/20/2021, Additional history exists Mammogram 11/25/2023 11/24/2022, 10/29, 11/22/2021, Additional history exists COVID-19 Vaccine ( season) 2023 Influenza Vaccine (#1) 2023 8, 02/02/2017, 01/14/2015, Additional history exists DTaP/Tdap/Td Vaccines (3 - Td or Tdap) 07/03/2024 07/03/2014, 07/03/2014, 06/26/2008 Diabetes: Hemoglobin A1C 07/13/2024 024, 11/29/2023, 09/26/2023, Additional history exists Depression Screening 07/26/2024 07/27/2023, 07/27/19 24 Diabetes: Foot Exam 09/25/2024 09/26/2023, 09/26/2023, 09/26/2023, Additional history exists SDOH Screening 11/19/2024 11/20/2023 Lipid Panel 02/12/2025 02/13/2024, 06/01, 03/15/2022, Additional history exists Tobacco Screening 06/17/2025 06/17/2024 Hepatitis B Vaccines Completed 01/27/2015, 11/26/2014, 07/03/2014 Zoster Vaccines Completed 10/04/2020, 08/06/2020 HIV Screening Discontinued 03/15/2022 HIB Vaccines Aged Out No longer eligi ble based on patient's age to complete this topic HPV Vaccines Aged Out No longer eligi ble based on patient's age to complete this topic Hepatitis A Vaccines Aged Out No long er eligible based on patient's age to complete this topic Hepatitis C Screening Discontinued IPV Vaccines Aged Out No longer eligi ble based on patient's age to complete this topic Meningococcal Vaccine Aged Out No bernadine mahad eligible based on patient's age to complete this topic RSV under 20 months Aged Out No longe r eligible based on patient's age to complete this topic Rotavirus Vaccines Aged Out No longer eligible based on patient's age to complete this topic Goals Goal Patient Goal Type Associated Problems Recent Progress Patient-Stated? Author Blood Pressure < 140/90 Blood Pressure 140/75(2024 3:03 PM EST) No Hector Dillon, Harriet Hemoglobin A1c < 7 Result Component 8.7( 3:03 PM EST) No Hector Dillon, Harriet Procedures Procedure Name Priority Date/Time Associated Diagnosis Comments POCT GLUCOSE Routine 06/17/2024 4:16 PM EST Type 2 diabetes mellitus with hyperglycemia, with long-term current use of insulin ([facility]) XR KNEE 4+ VIEWS RIGHT Routine 3:49 PM EST XR ANKLE 3+ VIEWS RIGHT Routine 04/14/2024 3:49 PM EST Other closed fracture of distal end of right tibia with routine healing, subsequent encounter POCT GLYCATED HEMOGLOBIN, TOTAL Routine 04/14/2024 3:03 PM EST Type 2 diabetes mellitus with hyperglycemia, with long-term current use of insulin ([facility]) POCT GLUCOSE Routine 04/14/2024 2:55 PM EST Type 2 diabetes mellitus with hyperglycemia, with long-term current use of insulin ([facility]) LIPID PANEL, STANDARD Routine 02/13/2024 10:08 AM EDT BI MAMMOGRAM SCREENING TOMOSYNTHESIS BILATERAL Routine 11/24/2022 11:45 AM EDT ALBUMIN, RANDOM URINE W/O CREATININE Routine 09/18/2022 10:57 AM EDT Type 2 diabetes mellitus with hyperglycemia, with long-term current use of insulin ([facility]) HIV 1/2 ANTIGEN/ANTIBODY, FOURTH GENERATION W/RFL Routine 03/15/2022 8:37 AM EST HM COLONOSCOPY Routine 06/12/2019 8:41 AM EST from Last 3 Months or Most Recently Relevant to Health Maintenance Results * (ABNORMAL) POCT Glucose (06/17/2024 4:16 PM EST) Only the most recent of2 resultswithin the time period is included. Glucose Blood, POC 336(A) 60 - 200 mg/dL Blood Capillary blood specimen / Unknown 06/17/2024 4:16 PM EST us Ashwini Johnson MD POINT OF CARE TEST ENTER /EDIT ORDERABLES Final Result * XR Ankle 3+ Views Right (04/14/2024 3:49 PM EST) Anatomical Region Laterality Modality Lower Extremities, Ankle Right Radiogr aphic Imaging 04/14/2024 3:49 PM EST Narrative 04/15/2024 12:46 PM EST ?[facility] ?[address] ?[place] [address] ?XRay Report ? Signed ? Patient: Bonner Charles,Sonya ?MR#: [id number] ?? [id number] ? : 1960 ?Acct:[id number] ? Age/Sex: 63 / F ?ADM Date: 04/14/24 ? Loc: HO.HHCX ? Attending Dr: Ashwini Johnson MD ? Ordering Physician: Ashwini Johnson MD ?? Date of Service: 04/14/24 ?? Procedure(s): XR ankle RT min 3V ?? Accession Number(s): [id number] ? cc: Ashwini Johnson MD ? EXAMINATION: ?? XR RIGHT KNEE ?? XR RIGHT ANKLE ? CLINICAL INFORMATION: ?? Closed fracture of distal end of right tibia with routine healing, ?? follow up tibial fracture, ankle pain and deformity. ? COMPARISON: ?? Right knee 10/25/2021, right ankle 02/07/2024, 12/27/2023. ? TECHNIQUE: ?? 4 views right knee, 4 views right ankle. ? FINDINGS: ? RIGHT KNEE: Moderate suprapatellar effusion. Minimal degenerative ?? changes in the medial and patellofemoral compartments. ? RIGHT ANKLE: Soft tissue swelling particularly along the lateral aspect ?? of the ankle. ? Redemonstration of a transverse Bustos A fracture of the lateral ?? malleolus with some mild interval bridging callus formation and ?? decreased conspicuity of fracture line. ? Moderate plantar calcaneal spur redemonstrated. ? XR/XR ankle RT min 3V ?? IMPRESSION: ?? Redemonstration of a transverse Bustos A fracture of the lateral ?? malleolus with some mild interval bridging callus formation and ?? decreased conspicuity of fracture line. ? Previously identified cortical irregularity of the lateral talus, ?? immediately adjacent to the tip of the lateral malleolus appears ?? similar. ? This study was presented today, April 15, 2024, for interpretation. ?? Stat results provided at this time as requested by referring provider. ? Electronically signed by: ??Michelle Lockhart MD ??04/15/2024 12:43 PM EST ?? RP ? Dictated By: ?Michelle Lockhart MD ? Signed By: ?<Electronically signed by Michelle Lockhart MD in OV> ? 04/15/24 1243 ? DD/ 1549 ? TD/TT: 04/14/24 1600 ? Sports Physical Therapist: ? Procedure Note Wilberto Willingham - 04/15/[address] [address] XRay Report Signed Patient: Sonya ElenaMR#: [id number] : 1960cct:[id number] Age/Sex: 63 / FADM Date: 04/14/24 Loc: HO.HHCX Attending Dr: Ashwini Johnson MD Ordering Physician: Ashwini Johnson MD Date of Service: 04/14/24 Procedure(s): XR ankle RT min 3V Accession Number(s): [id number] cc: Ashwini Johnson MD EXAMINATION: XR RIGHT KNEE XR RIGHT ANKLE CLINICAL INFORMATION: Closed fracture of distal end of right tibia with routine healing, follow up tibial fracture, ankle pain and deformity. COMPARISON: Right knee 10/25/2021, right ankle 02/07/2024, 12/27/2023. TECHNIQUE: 4 views right knee, 4 views right ankle. FINDINGS: RIGHT KNEE: Moderate suprapatellar effusion. Minimal degenerative changes in the medial and patellofemoral compartments. RIGHT ANKLE: Soft tissue swelling particularly along the lateral aspect of the ankle. Redemonstration of a transverse Bustos A fracture of the lateral malleolus with some mild interval bridging callus formation and decreased conspicuity of fracture line. Moderate plantar calcaneal spur redemonstrated. XR/XR ankle RT min 3V IMPRESSION: Redemonstration of a transverse Bustos A fracture of the lateral malleolus with some mild interval bridging callus formation and decreased conspicuity of fracture line. Previously identified cortical irregularity of the lateral talus, immediately adjacent to the tip of the lateral malleolus appears similar. This study was presented today, April 15, 2024, for interpretation. Stat results provided at this time as requested by referring provider. Electronically signed by: Michelle Lockhart MD 04/15/2024 12:43 PM EST RP Dictated By: Michelle Lockhart MD Signed By: <Electronically signed by Michelle Lockhart MD in OV> 04/15/24 1243 DD/ 1549 TD/TT: 04/14/24 1600 Sports Physical Therapist: us Ashwini Johnson MD IMG XR PROCEDURES Final Result * XR Knee 4+ Views Right (04/14/2024 3:49 PM EST) Anatomical Region Laterality Modality Lower Extremities, Knee Right Radiogra phic Imaging 04/14/2024 3:49 PM EST Narrative 04/15/2024 12:46 PM EST ?[facility] ?[address] ?[place] [address] ?XRay Report ? Signed ? Patient: Sonya Elena ?MR#: [id number] ?? [id number] ? : 1960 ?Acct:[id number] ? Age/Sex: 63 / F ?ADM Date: 04/14/24 ? Loc: HO.HHCX ? Attending Dr: Ashwini Johnson MD ? Ordering Physician: Ashwini Johnson MD ?? Date of Service: 04/14/24 ?? Procedure(s): XR knee RT 4V ?? Accession Number(s): [id number] ? cc: Ashwini Johnson MD ? EXAMINATION: ?? XR RIGHT KNEE ?? XR RIGHT ANKLE ? CLINICAL INFORMATION: ?? Closed fracture of distal end of right tibia with routine healing, ?? follow up tibial fracture, ankle pain and deformity. ? COMPARISON: ?? Right knee 10/25/2021, right ankle 02/07/2024, 12/27/2023. ? TECHNIQUE: ?? 4 views right knee, 4 views right ankle. ? FINDINGS: ? RIGHT KNEE: Moderate suprapatellar effusion. Minimal degenerative ?? changes in the medial and patellofemoral compartments. ? RIGHT ANKLE: Soft tissue swelling particularly along the lateral aspect ?? of the ankle. ? Redemonstration of a transverse Bustos A fracture of the lateral ?? malleolus with some mild interval bridging callus formation and ?? decreased conspicuity of fracture line. ? Moderate plantar calcaneal spur redemonstrated. ? XR/XR knee RT 4V ?? IMPRESSION: ?? Redemonstration of a transverse Bustos A fracture of the lateral ?? malleolus with some mild interval bridging callus formation and ?? decreased conspicuity of fracture line. ? Previously identified cortical irregularity of the lateral talus, ?? immediately adjacent to the tip of the lateral malleolus appears ?? similar. ? This study was presented today, April 15, 2024, for interpretation. ?? Stat results provided at this time as requested by referring provider. ? Electronically signed by: ??Michelle Lockhart MD ??04/15/2024 12:43 PM EST ? Dictated By: ?Michelle Lockhart MD ? Signed By: ?<Electronically signed by Michelle Lockhart MD in OV> ? 04/15/24 1243 ? DD/ 1549 ? TD/TT: 04/14/24 1600 ? Sports Physical Therapist: ? Procedure Note Maulik, Image - 04/15/[address] [address] XRay Report Signed Patient: Sonya ElenaMR#: [id number] : 1Acct:[id number] Age/Sex: 63 / FADM Date: 04/14/24 Loc: HO.HHCX Attending Dr: Ashwini Johnson MD Ordering Physician: Ashwini Johnson MD Date of Service: 04/14/24 Procedure(s): XR knee RT 4V Accession Number(s): [id number] cc: Alex,Lisa. MD EXAMINATION: XR RIGHT KNEE XR RIGHT ANKLE CLINICAL INFORMATION: Closed fracture of distal end of right tibia with routine healing, follow up tibial fracture, ankle pain and deformity. COMPARISON: Right knee 10/25/2021, right ankle 02/07/2024, 12/27/2023. TECHNIQUE: 4 views right knee, 4 views right ankle. FINDINGS: RIGHT KNEE: Moderate suprapatellar effusion. Minimal degenerative changes in the medial and patellofemoral compartments. RIGHT ANKLE: Soft tissue swelling particularly along the lateral aspect of the ankle. Redemonstration of a transverse Bustos A fracture of the lateral malleolus with some mild interval bridging callus formation and decreased conspicuity of fracture line. Moderate plantar calcaneal spur redemonstrated. XR/XR knee RT 4V IMPRESSION: Redemonstration of a transverse Bustos A fracture of the lateral malleolus with some mild interval bridging callus formation and decreased conspicuity of fracture line. Previously identified cortical irregularity of the lateral talus, immediately adjacent to the tip of the lateral malleolus appears similar. This study was presented today, April 15, 2024, for interpretation. Stat results provided at this time as requested by referring provider. Electronically signed by: Michelle Lockhart MD 04/15/2024 12:43 PM EST Dictated By: Michelle Lockhart MD Signed By: <Electronically signed by Michelle Lockhart MD in OV> 04/15/24 1243 DD/ 1549 TD/TT: 04/14/24 1600 Sports Physical Therapist: Ashwini Johnson MD IMG XR PROCEDURES Final Result * (ABNORMAL) POCT HGB A1C (04/14/2024 3:03 PM EST) Hemoglobin A1C 8.7(A) 4.0 - 6.0 % QC Media Lot # [id number] Lot# Expiration Date [id number] Blood 04/14/2024 3:03 PM EST Ashwini Johnson MD POINT OF CARE TEST ENTER /EDIT ORDERABLES Final Result * (ABNORMAL) Lipid Panel, Standard (02/13/2024 10:08 AM EDT) Triglycerides 108 <150 mg/dL [facility] Comment:Desirable Triglyceri de: less than 150 mg/dLBorderline High Triglyceride 150-199 mg/dLHigh Triglyceride: 200-499 mg/dLVery High Triglyceride: greater than or equal to 5OO mg/dL Cholesterol 215(H) <200 mg/dL [facility] Comment:Desirable Cholestero l: less than 200 mg/dLBorderline High Cholesterol: 200-239 mg/dLHigh Cholesterol: greater than 239 mg/dL LDL Cholesterol Calculated 135(H) <100 mg/dL [facility] Comment:Desirable LDL: less than 100 mg/dLNear Optimal/Above Optimal LDL: 110- 129 mg/dLBorderline High LDL: 130-159 mg/dLHigh LDL: 160-189 mg/dLVery High LDL: greater than or equal to 190 mg/dL HDL Cholesterol 59 >40 mg/dL [facility] Comment:Desirable HDL: great er than 40 mg/dL Note: This HDL assay may give artificially low results in patients with liver disease. 02/13/2024 10:0 8 AM EDT 02/13/2024 11:37 AM EDT us Ashwini Johnson MD LAB BLOOD ORDERABLES Fin al Result [facility] [address] [place], [place] [phone] * BI Mammogram Screening Tomosynthesis Bilateral (11/24/2022 11:45 AM EDT) Anatomical Region Laterality Modality Breast Bilateral Mammography 11/24/2022 11:4 5 AM EDT Narrative 12/15/2022 8:26 AM EDT ? [facility] ? [address] ?[place] [address] ? Mammography Report ? Signed ? Patient: Bonner Charles,Sonya ?MR#: [id number] ?? [id number] ? : 1960 ?Acct:[id number] ? Age/Sex: 62 / F ?ADM Date: 07/28/23 ? Loc: HO.MAMMO ? Attending Dr: Ashwini Johnson MD ? Ordering Physician: Ashwini Johnson MD ?Results: ? Date of Service: 11/24/22 ?Follow Up: ? Procedure(s): MM tomosynthesis screening BI ?? Accession Number(s): [id number] ? cc: Ashwini Johnson MD ? EXAMINATION: ?? MM SCREENING DIGITAL BREAST TOMOSYNTHESIS, BILATERAL ? CLINICAL INFORMATION: ? Screening. Asymptomatic. ? The lifetime risk of breast cancer based on the Tyrer-Cuzick Model is ?? 3.9%. ? COMPARISON: ?? Mammography: This study is compared with prior exams dating back to ?? 2018. ? TECHNIQUE: ?? Digital breast tomosynthesis is performed in both the craniocaudal and ?? mediolateral oblique views along with computer-aided detection (CAD). ?? Synthesized 2D images are generated from the tomosynthesis. ? FINDINGS: ?? There are scattered areas of fibroglandular density (ACR BI-RADS breast ?? composition Category b). ? There are no significant masses, abnormal calcifications, or other ?? abnormalities. ? MM/MM tomosynthesis screening BI ?? IMPRESSION: ?? No mammographic evidence of malignancy. ? ASSESSMENT: ? BI-RADS BI-RADS 1 - Negative ? RECOMMENDATION: ?? Routine annual mammography screening. ? 1 year F/U ? This examination should not preclude the clinical evaluation of a ?? suspicious palpable abnormality. ? This patient's information was entered into a reminder system with a ?? target due date for their next mammogram. ? Dictated By: ?Kamryn Garcia MD ? Signed By: ?<Electronically signed by Kamryn Garcia MD in OV> ? 12/15/823 ? DD/ 1145 ? TD/TT: ? Sports Physical Therapist: ? Procedure Note Donotuseinterpreter, Image - 12/15/2022 [facility] [address] [place], [place] [address] Mammography Report Signed Patient: Sonya ElenaMR#: [id number] : 1960cct:[id number] Age/Sex: 62 / FADM Date: 11/24/22 Loc: HO.MAMMO Attending Dr: Ashwini Johnson MD Ordering Physician: Ashwini Johnson MDResults: Date of Service: 11/24/22Follow Up: Procedure(s): MM tomosynthesis screening BI Accession Number(s): [id number] cc: Ashwini Johnson MD EXAMINATION: MM SCREENING DIGITAL BREAST TOMOSYNTHESIS, BILATERAL CLINICAL INFORMATION: Screening. Asymptomatic. The lifetime risk of breast cancer based on the Tyrer-Cuzick Model is 3.9%. COMPARISON: Mammography: This study is compared with prior exams dating back to 2018. TECHNIQUE: Digital breast tomosynthesis is performed in both the craniocaudal and mediolateral oblique views along with computer-aided detection (CAD). Synthesized 2D images are generated from the tomosynthesis. FINDINGS: There are scattered areas of fibroglandular density (ACR BI-RADS breast composition Category b). There are no significant masses, abnormal calcifications, or other abnormalities. MM/MM tomosynthesis screening BI IMPRESSION: No mammographic evidence of malignancy. ASSESSMENT: BI-RADS BI-RADS 1 - Negative RECOMMENDATION: Routine annual mammography screening. 1 year F/U This examination should not preclude the clinical evaluation of a suspicious palpable abnormality. This patient's information was entered into a reminder system with a target due date for their next mammogram. Dictated By: Kamryn Garcia MD Signed By: <Electronically signed by Kamryn Garcia MD in OV> 12/15/22 0824 DD/ 1145 TD/TT: Sports Physical Therapist: Ashwini Johnson MD IMG BI PROCEDURES Edited Result - Final * Albumin, Random Urine W/O Creatinine (09/18/2022 10:57 AM EDT) Albumin, Urine 2.5 See Note: mg/dL [employer] [place] [facility] Comment: Reference Range: Reference Range Not established [employer] [place] [facility] Comment: The ADA defines abnormalities in albumin excretion as follows: Albuminuria Category ? Result (mcg/mg creatinine) Normal to Mildly increased ?<30 Moderately increased ?30-299 Severely increased ?> OR = 300 The ADA recommends that at least two of three specimens collected within a 3-6 month period be abnormal before considering a patient to be within a diagnostic category. Urine Urine specimen obtained by clean catch procedure / Unknown 09/18/2022 10:57 AM EDT 09/18/2022 10:58 AM EDT [facility] 09/19/2022 6:43 PM EDT FASTING:YES FASTING: YES Ashwini Johnson MD LAB URINE ORDERABLES Fin al Result [facility] [address], [place] [address] [employer] [place] [employer] [address] [place] [address] * HIV 1/2 ANTIGEN/ANTIBODY,FOURTH GENERATION W/RFL (03/15/2022 8:37 AM EST) Pathologist [facility] HIV-1/2 ANTIGEN AND ANTIBODIES, 4TH GENERATION W/ REFLEX NON-REACT GRZEGORZ NON-REACT GRZEGORZ [facility] Comment: HIV-1 antigen and HIV-1/HIV-2 antibodies were not detected. There is no laboratory evidence of HIV infection. ?? PLEASE NOTE: This information has been disclosed to you from records whose confidentiality may be protected by state law. ??If your state requires such protection, then the state law prohibits you from making any further disclosure of the information without the specific written consent of the person to whom it pertains, or as otherwise permitted by law. A general authorization for the release of medical or other information is NOT sufficient for this purpose. ? For additional information please refer to http://education.[employer]/faq/MCJ031 (This link is being provided for informational/ educational purposes only.) ? The performance of this assay has not been clinically validated in patients less than 2 years old. ?? 03/15/2022 8:37 AM EST Ashwini Johnson MD LAB BLOOD ORDERABLES Fin al Result [facility] * Hm Colonoscopy (06/12/2019 8:41 AM EST) Historical Provider HEALTH MAINTENANCE Final Result from Last 3 Months or Most Recently Relevant to Health Maintenance Insurance [facility] C3 * Guarantor: Sonya Elena Account Type Relation to Patient Date of Phone Billing Address Personal/Family Self [address] [facility] [address] [place] Care Teams Poker Machine Attendant Relationship Specialty Start Date End Date Ashwini Johnson MD [address] [place] [address] PCP - General Family Medicine 12/11/17 Hector Dillon, AlbaD [address] [place] [phone] Pharmacist Internal Medicine 07/19/23
--- OUTSIDE RECORDS SUMMARY | 2024-06-24 16:17 | XMS_ITS | Encounter Summary ---
Author Organization [facility] Address [address] [facility] [address] [place] [address] Care Team Providers Care Senior Process Control Tech Name Role Phone Ashwini Johnson MD Primary Care Provider + Hector Dillon PharmD Unavailable [phone] Encounter Details Date Type Department Care Team (Latest Contact Info) Description 06/17/2024 Travel Social History Tobacco Use Types Packs/Day Years [...] Description 07/22/2024 1:30 PM EDT Medication Management [facility] [address] [place] [phone] Hector Dillon PharmD [address] [place] [phone] 09/11/2024 11:15 AM EDT Office Visit [facility] [address] [place] [address] [phone] Ashwini Johnson MD [address] [place] [address] [phone] documented as of this encounter Goals Goal Patient Goal Type Associated Problems Recent Progress Patient-Stated? Author Blood Pressure < 140/90 Blood Pressure 140/75(2024 3:03 PM EST) No Hector Dillon PharmD Hemoglobin A1c < 7 Result Component 8.7( 3:03 PM EST) No Hector Dillon PharmD documented as of this encounter Visit Diagnoses Not on filedocumented in this encounter Care Teams Senior Process Control Tech Relationship Specialty Start Date End Date Ashwini Johnson MD [address] [place] [address] [phone] PCP - General Family Medicine 12/11/17 Hector Dillon PharmD [address] [place] [address] [phone] Pharmacist Internal Medicine 07/19/23 documented as of this encounter
--- OUTSIDE RECORDS SUMMARY | 2024-06-24 16:17 | XMS_ITS | Encounter Summary ---
Author Organization [employer] Address [address] [facility] 7t [place] [address] Care Team Providers Care Chef Assistant Name Role Phone Ashwini Johnson MD Primary Care Provider + Hector Dillon PharmD Unavailable [phone] Reason for Visit * Reason Comments Med Refill Encounter Details Date Type Department Care Team ([facility] st Contact Info) Description 06/04/2024 Refill [facility] MEDICINE [address] [place], [place] [phone] Ashwini Johnson MD [address] [place], [place] [phone] Type 2 diabetes mellitus with other specified complication, unspecified whether terminal makeup operator insulin use ([facility]) Social History Tobacco Use Types Packs/Day [...] Description 07/22/2024 1:30 PM EDT Medication Management [facility] MEDICINE [address] [place] [address] Hector Dillon PharmD [address] [place] [address] 09/11/2024 11:15 AM EDT Office Visit [facility] MEDICINE [address] [place] [address] Ashwini Johnson MD [address] [place] [address] documented as of this encounter Goals Goal Patient Goal Type Associated Problems Recent Progress Patient-Stated? Author Blood Pressure < 140/90 Blood Pressure 140/75(2024 3:03 PM EST) No Hector Dillon PharmD Hemoglobin A1c < 7 Result Component 8.7( 3:03 PM EST) No Hector Dillon PharmD documented as of this encounter Visit Diagnoses Diagnosis Type 2 diabetes mellitus with other specified complication, unspecified whether fdc insulin use ([facility]) documented in this encounter Care Teams Chef Assistant Relationship Specialty Start Date End Date Ashwini Johnson MD [address] [place] [address] 03082 PCP - General Family Medicine 12/11/17 Hector Dillon, PharmD [address] [place] [address]74 Pharmacist Internal Medicine 07/19/23 documented as of this encounter
--- OUTSIDE RECORDS SUMMARY | 2024-06-24 16:17 | XMS_ITS | Encounter Summary ---
Author Organization [employer] Address [address] [facility] 7t [place] [address] Care Team Providers Care Architectural Inspector Name Role Phone Ashwini Johnson MD Primary Care Provider + Hector Dillon PharmD Unavailable [phone] Reason for Visit * Reason Comments Med Refill Encounter Details Date Type Department Care Team ([facility] st Contact Info) Description 06/11/[address] [facility] MEDICINE [address] [place], [place] [phone] Ashwini Johnson MD [address] [place], [place] [phone] Social History Tobacco Use Types Packs/Day Years [...] 1:30 PM EDT Medication Management [facility] MEDICINE [address] [place] [address] Hector Dillon PharmD [address] [place] [address] 09/11/2024 11:15 AM EDT Office Visit [facility] MEDICINE [address] [place] [address] 6[address] Ashwini Johnson MD [address] [place] [address] 54581 documented as of this encounter Goals Goal Patient Goal Type Associated Problems Recent Progress Patient-Stated? Author Blood Pressure < 140/90 Blood Pressure 140/75(2024 3:03 PM EST) No Hector Dillon PharmD Hemoglobin A1c < 7 Result Component 8.7( 3:03 PM EST) No Hector Dillon PharmD documented as of this encounter Visit Diagnoses Not on filedocumented in this encounter Care Teams Architectural Inspector Relationship Specialty Start Date End Date Ashwini Johnson MD [address] [place] [phone] PCP - General Family Medicine 12/11/17 Hector Dillon PharmD [address] [place] [address] 61018 Pharmacist Internal Medicine 07/19/23 documented as of this encounter
--- OUTSIDE RECORDS SUMMARY | 2024-06-24 16:17 | XMS_ITS | Encounter Summary ---
Author Organization [facility] Address [address] [place] [address] 7 [place] [address] Care Team Providers Care Garde Manger Name Role Phone Ashwini Johnson MD Primary Care Provider + Hector Dillon PharmD Unavailable [phone] Reason for Visit * Reason Onset Date Comments Med Refill Letter for Housing 07/25/2022 I called rega rding the pt's request for a letter for housing. The request does not state what she would like the letter to say. I reached a voicemail, and left a msg asking her to return my call at ext [phone]. Encounter Details Date Type Department Care Team (Late st Contact Info) Description 07/25/[address] [facility] MEDICINE [address] [place], [place] [phone] Ashwini Johnson MD [address], [place] [phone] Social History Tobacco Use Types Packs/Day Years Used Date Smoking Tobacco: Never Smokeless Tobacco: Never Alcohol Use Standard Drinks/Week Comments Never 0 (1 standard drink = 0.6 oz pur e alcohol) Depression Answer Date Recorded Patient Health Questionnaire-2 Score 0 07/24/2022 Comments No Sex and Gender Information Value Date Recorded Sex Assigned at Female 02/27/2022 10:16 AM EDT Legal Sex Female 10:16 AM EDT Gender Identity Female 02/27/2022 10:16 AM EDT Sexual Orientation Straight 02/27/2022 10 :16 AM EDT COVID-19 Exposure Response Date Recorded In the last 10 days, have yo u been in contact with someone who was confirmed or suspected to have Coronavirus/COVID-19? No / Unsure 07/23/2022 10:30 AM EDT documented as of this encounter Miscellaneous Notes * Telephone Encounter - Ermelinda Bal [place] - 08/03/2022 10:00 AM EDT I called the pt regarding a letter request for housing. The pt needs to state what she wants the letter to say. I reached a voicemail, and left a msg asking her to return my call at ext [phone]. documented in this encounter Plan of Treatment Upcoming Encounters Date Type Department Care Team (Late st Contact Info) Description 07/22/2024 1:30 PM EDT Medication Management [facility] MEDICINE [address] [place] [address] Hector Dillon, Harriet [address] [place] [address] 09/11/2024 11:15 AM EDT Office Visit [facility] MEDICINE [address] [place] [phone] Ashwini Johnson MD [address] [place] [address] 9[address] documented as of this encounter Visit Diagnoses Not on filedocumented in this encounter Care Teams Garde Manger Relationship Specialty Start Date End Date Ashwini Johnson MD [address] [place] [phone] PCP - General Family Medicine 12/11/17 Hector Dillon, AlbaD [address] [place] [address] [phone] Pharmacist Internal Medicine 07/19/23 documented as of this encounter
--- NOTE | 2024-06-30 13:49 | P.CONAN_ITS ---
Documented by User: Cyn Harris NP 06/30/24 13:49 HPI - Anesthesia Eval Consult details Narrative: 63yo F for Colonoscopy Anesthesia Pre-Procedure Meds Is the patient on any of the following meds?: GLP1/DPP4 and SGLT2 Inhib PMFSH Active Problems Active Problems: All Active Problems Closed fracture of right distal fibula (Acute) Contusion of left knee (Acute) Diabetes (Acute) Encounter for screening colonoscopy (Acute) Poor historian (Acute) Past Medical History Medical History Diabetes Surgical History Surgical History Hx of colonoscopy Social History Social History Household Members: Spouse Are you a primary child care center assistant director to a significant other at home: No Do you presently have visiting nurse or other home services: No Alcohol intake: never Patient Tobacco Use Status: Never used Tobacco Have you been hit, kicked, punched, or otherwise hurt by someone within the past year? If so, by whom?: No Are you DNR?: No Advance Directives: No Advance Directives Information Provided: Yes Recently lost weight without trying: No Nutrition Risks: No Nutritional Risk Current occupational status: disabled Meds Allergies Allergy/AdvReac Type Severity Reaction Status Date / Time No Known Allergies Allergy Verified 07/01/24 08:18 Home Medications ?Medication ?Instructions ?Recorded ?Confirmed ?Last Taken ?Type aspirin 81 mg tablet,delayed 81 mg PO DAILY 12/27/22 07/01/24 Unknown History release (Adult Low Dose Aspirin) atorvastatin 20 mg tablet 20 mg PO BEDTIME 12/27/22 07/01/24 Unknown History cholecalciferol (vitamin D3) 10 10 mcg PO DAILY 12/27/22 07/01/24 Unknown History mcg (400 unit) capsule dulaglutide 1.5 mg/0.5 mL 1.5 mg subcut QWEEK 12/27/22 07/01/24 06/17/24 History subcutaneous pen injector (Trulicity) empagliflozin 25 mg tablet 25 mg PO QAM 12/27/22 07/01/24 06/17/24 History (Jardiance) insulin glargine 100 unit/mL 35 unit subcut QPM 12/27/22 07/01/24 Unknown History subcutaneous solution (Lantus U-100 Insulin) lisinopril 20 mg tablet 20 mg PO DAILY 12/27/22 07/01/24 Unknown History Assessment and Plan Assessment Anesthesia Assessment: Chart Reviewed Documented by User: Cipriano Doran MD 07/01/24 08:32 PMFSH Past Medical History Medical History Diabetes Family History Family history of problems with anesthesia: No Surgical History Surgical History Hx of colonoscopy History of Problems with Anesthesia: No Social History Social History Household Members: Spouse Are you a primary child care center assistant director to a significant other at home: No Do you presently have visiting nurse or other home services: No Alcohol intake: never Patient Tobacco Use Status: Never used Tobacco Have you been hit, kicked, punched, or otherwise hurt by someone within the past year? If so, by whom?: No Are you DNR?: No Advance Directives: No Advance Directives Information Provided: Yes Recently lost weight without trying: No Nutrition Risks: No Nutritional Risk Current occupational status: disabled Meds Allergies Allergy/AdvReac Type Severity Reaction Status Date / Time No Known Allergies Allergy Verified 07/01/24 08:18 Home Medications ?Medication ?Instructions ?Recorded ?Confirmed ?Last Taken ?Type aspirin 81 mg tablet,delayed 81 mg PO DAILY 12/27/22 07/01/24 Unknown History release (Adult Low Dose Aspirin) atorvastatin 20 mg tablet 20 mg PO BEDTIME 12/27/22 07/01/24 Unknown History cholecalciferol (vitamin D3) 10 10 mcg PO DAILY 12/27/22 07/01/24 Unknown History mcg (400 unit) capsule dulaglutide 1.5 mg/0.5 mL 1.5 mg subcut QWEEK 08/07/01/24 06/17/24 History subcutaneous pen injector (Trulicity) empagliflozin 25 mg tablet 25 mg PO QAM 12/27/22 07/01/24 06/17/24 History (Jardiance) insulin glargine 100 unit/mL 35 unit subcut QPM 12/27/22 07/01/24 Unknown History subcutaneous solution (Lantus U-100 Insulin) lisinopril 20 mg tablet 20 mg PO DAILY 12/27/22 07/01/24 Unknown History Exam Airway Mallampati Class: II TM Dist: >3cm Neck ROM: Full Loose/Missing/Broken Teeth: Yes Assessment and Plan Assessment Anesthesia Assessment: Anesthesia Plan Discussed Final Anesthetic Review Family History of Problems with Anesthesia: No History of Problems with Anesthesia: No NPO: Yes ASA Class: III Final Preanesthetic Review: No Changes in Pt Med Stat, Meds/Allgs Chart Reviewed, Consent Obtained/Reviewed and Anes Risks/Benef Reviewed Patient Risk: Intermediate Procedure Risk: Low Anesthetic Plan Anesthetic Plan: MAC: Disposition: Standard PACU
[2024-07-01] MEDS: Lactated Ringers 1,000 ML 100 ML IVCONT (08:10)
[2024-07-01 08:13] VITALS: BP 135/77; PULSE 73; RESP 18; TEMP 36.6; O2SAT 98
[2024-07-01 08:13] LABS: Glucose, Whole Blood 149 mg/dL (60-115)
[2024-07-01 08:28] VITALS: BMI 40.8
--- NOTE | 2024-07-01 09:02 | MHC.SHP ---
Pre-Procedural Eval Section A - 24 Hr Update-Section A only Date of Service: 07/01/24 Section B - Complete if H&P > 30 days Chief Complaint: Encounter for screening for malignant neoplasm of Details of Present Illness: T2DM Present Medications: see Short Stay Collaborative assessment History of Previous Operations: No relevant previous surgery Allergies: Allergies Allergy/AdvReac Type Severity Reaction Status Date / Time No Known Allergies Allergy Verified 02/25/24 13:55 Review of Systems Review of Systems Comment: 10 point ROS negative Exam Exam Comment: Gen appear: No acute distress HEENT: no icterus Chest: No overt resp distress Abd: soft, nontender, nondistended Psych: Stable affect, answering questions appropriately Neuro: A/Ox3 noted to move all extremities spontaneously Ext: no peripheral edema Plan Diagnosis/Plan: Unchanged I have reviewed the history and physical and performed a pertinent physical examination on my patient. No changes have occurred unless specified. Time Spent With Patient Time: Total time managing care of this patient today ____ minutes.
--- NOTE | 2024-07-01 09:26 | P.OPN-COLO_ITS ---
Colonoscopy Operative Note Operative Note Date of Service: 07/01/24 Narrative: Procedure: Colonoscopy Indication: Screening Endoscopist: Eva Begum MD Anesthesia Provider: Dr Cipriano Doran Anesthesia type: MAC Instrument: Olympus [id number]-H190L Consent: Indication, risks vs benefits, and alternatives were discussed with the patient who gave written informed consent to proceed. An armature rewinder was utilized to assist with the consent. EKG, pulse, pulse oximetry and blood pressure were monitored throughout the procedure. Please see anesthesia flowsheet. Procedure: The patient was brought to the procedure room and placed in the left lateral decubitus position. IV medications were administered by the anesthesia provider in attendance. A digital rectal exam was performed which was normal. A distal attachment cap was affixed to the tip of the colonoscope which was then inserted through the anus and advanced through the colon to the cecum at 75 cm,and terminal ileum. Appendiceal orifice and ileocecal valve were identified. Mucosa was carefully examined under high definition white light as the instrument was slowly withdrawn in a retrograde panoramic fashion. Retroflexion was performed in rectum. The procedure was not difficult. There were no immediate obvious complications. The quality of the prep was BBPS: 3+2+3 = adequate Withdrawal time 7 minutes. Limitations: No limitations. Findings: Mucosa: Normal to cecum and terminal ileum. Protruding lesions: * Large internal hemorrhoids without stigmata of recent bleeding. Excavated lesions: * Moderate diverticulosis of left sided colon. Impression: 1. Normal colon mucosa 2. Diverticulosis 3. Internal hemorrhoids Recommendations: - Repeat colonoscopy in 10 years - Follow up in GI office as needed
[2024-07-01 09:30] VITALS: BP 113/53; PULSE 74; RESP 12; TEMP 36.6; O2SAT 96
[2024-07-01 09:45] VITALS: BP 134/65; PULSE 74; RESP 16; TEMP 36.6; O2SAT 99
== END 2024-07-01 10:11 | disposition home or self-care (01) ==
PROVIDERS: PCP Internal Medicine; Visit Provider Internal Medicine
PROC: 0DJD8ZZ Inspection of Lower Intestinal Tract, Via Natural or Artificial Opening Endoscopic (ICD-10-PCS; CPT 45378; principal; 2024-07-01 07:30)
DX: Z12.11 Encounter for screening for malignant neoplasm of colon (principal); K57.30 Diverticulosis of large intestine without perforation or abscess without bleeding; K64.8 Other hemorrhoids; E11.9 Type 2 diabetes mellitus without complications; Z79.84 Long term (current) use of oral hypoglycemic drugs; Z79.4 Long term (current) use of insulin; Z88.8 Allergy status to other drugs, medicaments and biological substances
CPT/HCPCS: 45378; 82947; J2003; J2704

== ENCOUNTER → 2024-07-01 07:30 | Outpatient (BNV) | payer MEDICAID, SELFPAY | PROVIDERS: PCP Internal Medicine; Visit Provider Internal Medicine | DX: Z12.11 Encounter for screening for malignant neoplasm of colon (principal); K64.8 Other hemorrhoids; K57.30 Diverticulosis of large intestine without perforation or abscess without bleeding | CPT/HCPCS: 45378 ==

== ENCOUNTER 2024-09-17 08:05 | Outpatient (REF) | payer MEDICAID, SELFPAY ==
[2024-09-17 11:39] LABS: Alanine Aminotransferase 39 U/L (0-31); Albumin Level 3.9 g/dL (3.5-5.0); Alkaline Phosphatase 75 U/L (39-117); Anion Gap 10 (12-20); Aspartate Amino Transferase 30 U/L (5-31); Bilirubin Direct 0.2 mg/dL (0.0-0.5); Bilirubin Total 0.5 mg/dL (0.0-1.0); Blood Urea Nitrogen 13 mg/dL (9-16); Carbon Dioxide 30 mmol/L (22-29); Chloride 105 mmol/L (96-108); Cholesterol 220 mg/dL (<200); Estimated Glomerular Filt Rate > 60; Glucose Random 100 mg/dL (60-115); HDL Cholesterol 68 mg/dL (>40); LDL Cholesterol Calculated 139 mg/dL (<100); Sodium 141 mmol/L (135-145); Total Protein 6.9 g/dL (6.5-8.0); Triglycerides 66 mg/dL (<150)
[2024-09-17 11:48] LABS: Creatinine Urine 219.07 mg/dL; Microalbum/Creatinine Ratio Ur 14.6 ug/mg cr (<30)
[2024-09-17 13:15] LABS: Reflex LDLD? No
== END 2024-09-17 08:06 | disposition home or self-care (01) ==
LOC: HO.HHCL 08:05
PROVIDERS: Visit Provider Internal Medicine
DX: E11.65 Type 2 diabetes mellitus with hyperglycemia (principal); E78.00 Pure hypercholesterolemia, unspecified; Z79.4 Long term (current) use of insulin
CPT/HCPCS: 36415; 80048; 80061; 80076; 82043; 82570

== ENCOUNTER 2024-12-01 13:39 | Outpatient (RCR) | payer MEDICAID, SELFPAY ==
--- NOTE | 2024-11-10 16:36 | MHC.PT.EP ---
[facility] [place] Office [place] Office [place] Office [address] Keli Ca [address] [phone] F: [phone] F: [phone] F: [phone] F: [phone] Physical Therapy Plan of Care Date of Evaluation: 11/10/24 Date of Surgery: Diagnosis: Lumbar back pain with radiculopathy affecting lower extremity. Assessment: Pt is a 64 y/o female referred to PT for eval and treat of Lumbar back pain with radiculopathy affecting lower extremity which is resulting in decreased tolerance for standing, walking, sitting for duration, rolling in bed, as well as performing heavy HH chores secondary to decreased trunk ROM and core and hip strength, increased lumbar lordosis, Hx of scoliosis, R LE short likely d/t scoliosis, R LE increased tissue and neural tension, TTP of lumbar spine as well as pain with activity. Pt is deemed an appropriate candidate to receive skilled PT services to address their physical impairments in order to improve their functional ability. Frequency and Duration: The patient will be seen 2 x/ wk x 3 wks. Short Term Goals: initiate home program. Improve baseline pain to < 6/10; initial: 9/10. Dressing Machine Operator Goals: I with home program. Pt will be able to sit > 1 hour with managed Sx. Pt will improve Nathalia by at least 9 points. Pt will be able to walk 2 blocks with at most a little bit of difficulty; initial: quite a bit of difficulty or unable. Treatment Plan: Modalities to reduce pain, spasms and effusion. Manual therapy to restore motion and function. Therapeutic exercise to improve strength and flexibility. Neuromuscular re-education for posture and balance. Therapeutic activities to return to functional activities of daily living. Electronically signed by: Horacio Bains PT. Please sign and return to therapist. Thank you for your referral.
== END 2025-01-09 07:19 | disposition home or self-care (01) ==
LOC: HO.PT 13:39
PROVIDERS: PCP Internal Medicine; Visit Provider Internal Medicine
DX: M54.16 Radiculopathy, lumbar region (principal)
CPT/HCPCS: 97014; 97110; 97140; 97161

== ENCOUNTER 2025-02-19 18:03 | Outpatient (REF) | payer MEDICAID, SELFPAY ==
--- OUTSIDE RECORDS SUMMARY | 2025-02-19 11:15 | XMS_ITS | Encounter Summary ---
Author Organization [employer] Address [address] [facility]t [place] [address] Care Team Providers Care Felting Machine Operator Name Role Phone Ashwini Johnson MD Primary Care Provider + Hector Dillon PharmD Unavailable [phone] Reason for Visit * Reason Comments Gynecologic Exam Encounter Details Date Type Department Care Team (Latest Contact Info) Description 02/19/2025 11:15 AM EDT Procedure Visit [facility] MEDICINE [address] [place], [place] [phone] Ashwini Johnson MD [address] [place], [place] [phone] Encounter for cervical Pap smear with pelvic exam (Primary Dx); Screening mammogram for breast cancer; Vaccination declined; Acute right-sided back pain with sciatica; Plantar fasciitis; Class 3 severe obesity due to excess calories with serious comorbidity and body mass index (BMI) of 40.0 to 44.9 in adult (HCC) Social History Tobacco Use Types Packs/Day Years [...] Sign Reading Time Taken Comments Blood Pressure 122/74 02/19/2025 10:54 AM EDT Pulse 66 02/19/2025 10:54 AM EDT Temperature 36.3 C (97.3 F) 02/19/2025 10:54 AM EDT Respiratory Rate 20 02/19/2025 10:54 AM EDT Oxygen Saturation - - Inhaled Oxygen Concentration - - Weight 103 kg (227 lb 9.6 oz) 02/19/2025 10:54 A M EDT Height 154.9 cm (5' 1 ) 02/19/2025 10:54 AM EDT Body Mass Index 43 02/19/2025 10:54 AM EDT documented in this encounter Plan of Treatment Upcoming Encounters Date Type Department Care Team (Late st Contact Info) Description 02/27/2025 11:00 AM EDT Medication Management [facility] MEDICINE [address] [place] [address]20 Hector Dillon, PharmD [address] [place] [address] 729[address] 05/22/2025 10:30 AM EST Office Visit [facility] MEDICINE [address] [place] [address]51 Ashwini Johnson MD [address] [place] [address] 97842 Scheduled Orders Name Type Priority Associated Diagnoses Order Schedule Pap Smear Pathology and Cytology Routine Encounter for cervical Pap smear with pelvic exam Ordered: 02/19/2025 Bacterial Vaginosis Microbiology Routine Encounter for cervical Pap smear with pelvic exam Expected: 02/19/2025 (Approximate), Expires: 02/19/2026 Chlamydia/N. Gonorrhoeae RNA, TMA, Urogenitial Microbiology Routine Encounter for cervical Pap smear with pelvic exam Ordered: 02/19/2025 documented as of this encounter Goals Goal Patient Goal Type Associated Problems Recent Progress Patient-Stated? Author Blood Pressure < 140/90 Blood Pressure 122/74(2024 10:54 AM EDT) No Hector Dillon, Harriet Hemoglobin A1c < 7 Result Component 8.4( 10:34 AM EDT) No Hector Dillon, Harriet documented as of this encounter Visit Diagnoses Diagnosis Encounter for cervical Pap smear with pelvic exam- Primary Screening mammogram for breast cancer Vaccination declined Acute right-sided back pain with sciatica Plantar fasciitis Plantar fascial fibromatosis Class 3 severe obesity due to excess calories with serious comorbidity and body mass index (BMI) of 40.0 to 44.9 in adult (HCC) documented in this encounter Care Teams Felting Machine Operator Relationship Specialty Start Date End Date Ashwini Johnson MD [address] [place] [address] 83975 PCP - General Family Medicine 12/11/17 Hector Dillon, PharmD [address] [place] [address] 82524 Pharmacist Internal Medicine 07/19/23 documented as of this encounter
--- OUTSIDE RECORDS SUMMARY | 2025-02-19 19:42 | XMS_ITS | Encounter Summary ---
Author Organization [employer] Address [address] [facility] [address] 7[address] [place] [address] Care Team Providers Care Technician Terminal And Repeater Name Role Phone Ashwini Johnson MD Primary Care Provider + Hector Dillon PharmD Unavailable [phone] Reason for Visit * Reason Onset Date Comments Med Refill Letter for Housing 07/25/2022 I called rega rding the pt's request for a letter for housing. The request does not state what she would like the letter to say. I reached a voicemail, and left a msg asking her to return my call at [phone]. Encounter Details Date Type Department Care Team (Late st Contact Info) Description 07/25/2022 Refill [facility] MEDICINE [address] [place], [place] [phone] Ashiwni Johnson MD [address] [place], [place] [phone] Social History Tobacco Use Types Packs/Day Years [...] Description 02/27/2025 11:00 AM EDT Medication Management [facility] MEDICINE [address] [place] [phone] Hector Dillon PharmD [address] [place] [address] 05/22/2025 10:30 AM EST Office Visit [facility] MEDICINE [address] [place] [address] 8[address]25 Ashwini Johnson MD [address] [place] [address] 90367 documented as of this encounter Visit Diagnoses Not on filedocumented in this encounter Care Teams Technician Terminal And Repeater Relationship Specialty Start Date End Date Ashwini Johnson MD [address] [place] [address] 06013 PCP - General Family Medicine 12/11/17 Hector Dillon PharmD [address] [place] [address] 04545 Pharmacist Internal Medicine 07/19/23 documented as of this encounter
--- OUTSIDE RECORDS SUMMARY | 2025-02-19 19:42 | XMS_ITS | Encounter Summary ---
Author Organization [employer] Address [address] [facility] [address] 7[address] [place] [address] Care Team Providers Care Class B Truck Driver Name Role Phone Ashwini Johnson MD Primary Care Provider + Hector Dillon PharmD Unavailable [phone] Encounter Details Date Type Department Care Team (Late st Contact Info) Description 09/26/2023 Orders Only [facility] MEDICINE [address] [place], [place] [phone] ProviderTracey MD Social History Tobacco Use Types [...] Description 02/27/2025 11:00 AM EDT Medication Management [facility] MEDICINE [address] [place] [phone] Hector Dillon PharmD [address] [place] [address] 05/22/2025 10:30 AM EST Office Visit [address] [address] Ashwini Johnson MD [address] [place] [phone] documented as of this encounter Goals Goal Patient Goal Type Associated Problems Recent Progress Patient-Stated? Author Blood Pressure < 140/90 Blood Pressure 122/74(2024 10:54 AM EDT) No Hector Dillon PharmD Hemoglobin A1c < 7 Result Component 8.4( 10:34 AM EDT) No Hector Dillon PharmD documented as of this encounter Procedures Procedure Name Priority Date/Time Associated Diagnosis Comments HM COLONOSCOPY Routine 06/12/2019 8:41 AM EST documented in this encounter Results * Hm Colonoscopy (06/12/2019 8:41 AM EST) us Historical Provider HEALTH MAINTENANCE Final Result documented in this encounter Visit Diagnoses Not on filedocumented in this encounter Care Teams Class B Truck Driver Relationship Specialty Start Date End Date Ashwini Johnson MD [address] [place] [phone] PCP - General Family Medicine 12/11/17 Hector Dillon PharmD [address] [place] [address] Pharmacist Internal Medicine 07/19/23 documented as of this encounter
--- OUTSIDE RECORDS SUMMARY | 2025-02-19 19:42 | XMS_ITS | Encounter Summary ---
Author Organization [email or web address] Address [address] [facility] [address] [place] [address] Care Team Providers Care Fairground Operator Name Role Phone Ashwini Johnson MD Primary Care Provider + Hector Dillon PharmD Unavailable [phone] Reason for Visit * Reason Onset Date Comments Created In Error 01/17/2024 Encounter Details Date Type Department Care Team ([facility] st Contact Info) Description 01/17/2024 Telephone [facility] [address] [place], [place] [phone] Ashwini Johnson MD [address] [place], [place] [phone] Created In Error Social History Tobacco Use [...] Description 02/27/2025 11:00 AM EDT Medication Management [facility] [address] [place] [phone] Hector Dillon PharmD [address] [place] [phone] 05/22/2025 10:30 AM EST Office Visit [address] [address] Ashwini Johnson MD [address] [place] [phone] documented as of this encounter Goals Goal Patient Goal Type Associated Problems Recent Progress Patient-Stated? Author Blood Pressure < 140/90 Blood Pressure 122/74(2024 10:54 AM EDT) No Hector Dillon PharmD Hemoglobin A1c < 7 Result Component 8.4( 10:34 AM EDT) No Hector Dillon PharmD documented as of this encounter Visit Diagnoses Not on filedocumented in this encounter Care Teams Fairground Operator Relationship Specialty Start Date End Date Ashwini Johnson MD [address] [place] [address] PCP - General Family Medicine 12/11/17 Hector Dillon PharmD [address] [place] [phone] Pharmacist Internal Medicine 07/19/23 documented as of this encounter
--- OUTSIDE RECORDS SUMMARY | 2025-02-19 19:42 | XMS_ITS | Encounter Summary ---
Author Organization [employer] Address [address] [facility] [address] [place] [address] Care Team Providers Care Greensman Name Role Phone Ashwini Johnson MD Primary Care Provider + Hector Dillon PharmD Unavailable [phone] Reason for Visit * Reason Onset Date Comments PT referral 02/18/2025 Encounter Details Date Type Department Care Team ([facility] st Contact Info) Description 02/18/2025 Telephone [facility] [address] [place], [place] [phone] Ashwini Johnson MD [address] [place], [place] [phone] PT referral Social History Tobacco Use Types Packs/Day Years [...] encounter Miscellaneous Notes * Telephone Encounter - Mita Araiza [place] - 02/18/2025 3:24 PM EDT TC to [facility] Core re: PT referral Spoke with Estela who states that the pt was discharged in November. Sent a req for PT OV notes to [phone]. documented in this encounter Plan of Treatment Upcoming Encounters Date Type Department Care Team (Late st Contact Info) Description 02/27/2025 11:00 AM EDT Medication Management [facility] [address] [place] [phone] Hector Dillon PharmD [address] [place] [address] 05/22/2025 10:30 AM EST Office Visit [facility] [address] [place] [phone] Ashwini Johnson MD [address] [place] [address] documented as of this encounter Goals Goal Patient Goal Type Associated Problems Recent Progress Patient-Stated? Author Blood Pressure < 140/90 Blood Pressure 122/74(2024 10:54 AM EDT) No Hector Dillon PharmD Hemoglobin A1c < 7 Result Component 8.4(08/19/202 5 10:34 AM EDT) No Hector Dillon, PharmD documented as of this encounter Visit Diagnoses Not on filedocumented in this encounter Care Teams Greensman Relationship Specialty Start Date End Date Ashwini Johnson MD [address] [place] [phone] PCP - General Family Medicine 12/11/17 Hector Dillon, PharmD [address] [place] [phone] Pharmacist Internal Medicine 07/19/23 documented as of this encounter
--- OUTSIDE RECORDS SUMMARY | 2025-02-19 19:42 | XMS_ITS | Encounter Summary ---
Author Organization [employer] Address [address] [place] [address] Care Team Providers Care Blue Line Trimmer Name Role Phone Ashwini Johnson MD Primary Care Provider + Hector Dillon PharmD Unavailable [phone] Encounter Details Date Type Department Care Team ([facility] st Contact Info) Description 08/21/2024 Telephone [facility] [address] [place], [place] [phone] Ashwini Johnson MD [address] [place], [place] [phone] Social History Tobacco Use Types Packs/Day Years [...] Description 02/27/2025 11:00 AM EDT Medication Management [facility] [address] [place] [phone] Hector Dillon PharmD [address] [place] [phone] 05/22/2025 10:30 AM EST Office Visit [facility] [address] [place] [phone] Ashwini Johnson MD [address] [place] [phone] documented as of this encounter Goals Goal Patient Goal Type Associated Problems Recent Progress Patient-Stated? Author Blood Pressure < 140/90 Blood Pressure 122/74(2024 10:54 AM EDT) No Hector Dillon PharmD Hemoglobin A1c < 7 Result Component 8.4( 10:34 AM EDT) No Hector Dillon PharmD documented as of this encounter Visit Diagnoses Not on filedocumented in this encounter Care Teams Blue Line Trimmer Relationship Specialty Start Date End Date sAhwini Johnson MD [address] [place] [address] PCP - General Family Medicine 12/11/17 Hector Dillon PharmD [address] [place] [address] Pharmacist Internal Medicine 07/19/23 documented as of this encounter
--- OUTSIDE RECORDS SUMMARY | 2025-02-19 19:42 | XMS_ITS | Clinical Summary ---
Author Organization [employer] Address [address] [place] [address] Care Team Providers Care Retort Cooler Name Role Phone Ashwini Johnson MD Primary Care Provider + Hector Dillon PharmD Unavailable [phone] Allergies Active Allergy Reactions Criticality Noted Date Comments Metformin 01/06/2015 Other reaction(s): GI upset Medications Blood Glucose Monitoring Suppl (FreeStyle Lite) device Inject 1 each under the skin in the morning. Please check blood sugar as instructed 1 each 023 Active Blood Pressure Monitor kitIndications:Es sential hypertension Check blood pressure twice a wee. Dx hypertension 1 kit 024 Active insulin pen needle (Sure Comfort Pen Leggett) 31G x 5 mm miscIndications:T ype 2 diabetes mellitus with hyperglycemia, with long-term current use of insulin (HCC) USE DAILY WITH INSULIN 100 each 11 024 Active TRUEplus Lancets 33G misc TEST BLOOD SUGAR 4 TO 6 TIMES A DAY 200 each 11 024 Active glucose blood (FREESTYLE LITE) test stripIndications: Type 2 diabetes mellitus with hyperglycemia, with long-term current use of insulin (HCC) Use to check blood sugar twice daily. 100 each 11 025 Active amitriptyline (Elavil) 75 MG tabletIndications :Diabetic polyneuropathy associated with type 2 diabetes mellitus (HCC) TAKE 1 TABLET BY MOUTH AT BEDTIME 90 tablet 3 025 Active aspirin (Aspirin Adult Low Strength) 81 MG EC tabletIndications :Cardiovascular event risk TAKE 1 TABLET BY MOUTH EVERY DAY 90 tablet 3 Active betamethasone valerate (Valisone) 0.1 % cream Apply topically if needed in the morning and at bedtime for irritation or rash. 45 g Active albuterol (Ventolin HFA) 108 (90 Base) MCG/ACT inhalerIndication s:Mild persistent asthma without complication INHALE 2 PUFFS BY MOUTH EVERY 6 HOURS NEEDED FOR WHEEZING 18 g Active metFORMIN XR (Glucophage-XR) 500 MG 24 hr tabletIndications :Type 2 diabetes mellitus with hyperglycemia, with long-term current use of insulin ([facility]) TAKE 1 TABLET BY MOUTH EVERY EVENING FOR 1 WEEK, THEN INCREASE TO 1 TAB TWICE DAILY WITH FOOD. 180 tablet 3 Active meloxicam (Mobic) 15 MG tablet TAKE 1 TABLET BY MOUTH ONCE DAILY 30 tablet Active glucagon (Gvoke HypoPen 2-Pack) 1 MG/0.2ML injectionIndicati ons:Type 2 diabetes mellitus with hyperglycemia, with long-term current use of insulin ([facility]) Inject 0.2 mL (1 mg) under the skin 1 (one) time if needed for low blood sugar. May repeat dose if there has been no response after 15 minutes. 0.4 mL 1 025 2025 Active glucose 4 g chewable tabletIndications :Type 2 diabetes mellitus with hyperglycemia, with long-term current use of insulin ([facility]) Chew 4 tablets (16 g) if needed for low blood sugar. 30 tablet 11 025 2025 Active insulin glargine (Lantus SoloStar) 100 UNIT/ML penIndications:Ty pe 2 diabetes mellitus with hyperglycemia, with long-term current use of insulin ([facility]) Inject 30 units under the skin once daily 15 mL 5 Active ezetimibe (Zetia) 10 MG tablet Take 1 tablet (10 mg) by mouth Once per day. 90 tablet 3 025 2025 Active gabapentin (Neurontin) 800 MG tabletIndications :Diabetic polyneuropathy associated with type 2 diabetes mellitus ([facility]) TAKE 1 TABLET BY MOUTH THREE TIMES DAILY IN THE MORNING, EVENING, AND BEDTIME 90 tablet 2 Active lisinopril 20 MG tablet TAKE 1 TABLET BY MOUTH EVERY MORNING 90 tablet 1 Active Jardiance 25 MGIndications:Typ e 2 diabetes mellitus with other specified complication, unspecified whether detention insulin use (HCC) TAKE 1 TABLET BY MOUTH EVERY MORNING 30 tablet 3 Active ergocalciferol (Vitamin D2) 1.25 MG (31898 UT) capsule TAKE 1 CAPSULE BY MOUTH ONCE WEEKLY ON SUNDAY MORNING 13 capsule 1 Active rosuvastatin (Crestor) 20 MG tablet TAKE 1 TABLET BY MOUTH EVERY MORNING 90 tablet 3 Active Semaglutide, 2 MG/DOSE, (Ozempic, 2 MG/DOSE,) 8 MG/3ML solution pen-injector Inject 0.75 mL (2 mg) under the skin 1 (one) time per week. 3 mL 3 Active lidocaine (Lidoderm) 5 % patch Apply 1 patch topically Once per day. Remove & discard patch within 12 hours or as directed by MD. 30 patch 1 025 2024 Active rosuvastatin (Crestor) 20 MG tablet Take 1 tablet (20 mg) by mouth Once per day. 90 tablet 3 024 2024 Discontinued baclofen (Lioresal) 5 MG tablet Take 1 tablet (5 mg) by mouth 3 times daily for 10 days. 30 tablet 025 2024 Discontinued(T herapy completed) semaglutide (Ozempic, 1 MG/DOSE,) 4 MG/3ML solution pen-injector Inject 1 mg under the skin 1 (one) time per week. 3 mL 11 025 2024 Discontinued(D ose adjustment) lidocaine (Lidoderm) 5 % patch APPLY 1 PATCH TOPICALLY TO SKIN, LEAVE ON FOR 12 HOURS AND OFF FOR 12 HOURS DIRECTED 30 patch 1 025 2024 Discontinued(R eorder (will not trigger notification to Pharmacy)) Active Problems Problem Noted Date Diagnosed Date Vaccination declined 02/19/2025 Lipoma of lower extremity 12/16/2024 Assessment & Plan (12/16/2024 1:48 PM EDT): On left tibial shaft, it has not changed size in the past several years. Reassurance, will referred for resection on a as needed basis, patient is not interested on interventional procedure at this time. Screening mammogram for breast cancer 12/16/2024 Class 3 severe obesity due t o excess calories with serious comorbidity and body mass index (BMI) of 40.0 to 44.9 in adult 12/16/2024 Fracture of distal end of fibula 02/13/2024 [...] no better RTC to reeval freddy itching Seasonal allergies 01/17/2024 Assessment & Plan (01/17/2024 8:13 PM EDT): Cetirizine and ocean sapray PRN for ongoing nocturnal congestion and nasal itching Intrinsic atopic dermatitis 01/03/2024 Assessment & Plan (09/11/2024 11:51 AM EDT): On chest, you may be contact dermatitis due to some fabric or may be a environmental allergen. Use Betamethasone cream as needed Assessment & Plan (01/03/2024 9:33 AM EDT): [...] Preventative health care 07/27/2023 Assessment & Plan (12/16/2024 1:50 PM EDT): Will order mammogram She uretheral a Pap smear with me, will schedule for next upcoming appointment. 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 We discussed with her the importance of physical therapy, weight reduction and mild physical activity. She agreed to be referred to PT. I gave her information regarding acupuncture as well. Toradol injection today, she will continue meloxicam daily x 1 to 2 weeks + Tylenol + Flexeril nightly neck I will consider steroid injections if symptoms do not respond to PT, especially if she loses weight as it is expected with Ozempic. Assessment & Plan (06/21/2023 5:26 PM EST): [...] were renting was sold. Will refer to home care liaison for assistance. Pt has applied for housing [...] compression stockings and DM shoes Diabetic polyneuropathy asso ciated with type 2 diabetes mellitus 07/24/2022 Assessment & Plan (12/16/2024 1:49 PM EDT): We discussed importance of taking gabapentin 3 times per day, hold for sedation and follow-up with me at next visit. Continue amitriptyline nightly, add diclofenac gel. If symptoms do not improve, I will add duloxetine. Discussed importance of tight control of DM for long-term improvement of neuropathy We discussed importance of daily foot check Assessment & Plan (06/30/2024 11:49 AM EST): Symptoms are compatible with diabetic neuropathy I will increase her gabapentin to 800mg TID (last EGF is ok) I will refer patient to podiatry Extensive counseling regarding glucose control, diabetic diet and taking her medications as prescribe F/u with PCP Assessment & Plan (06/17/2024 3:14 PM EST): [...] XXXX Acute back pain with sciatica 04/25/2022 Assessment & Plan (09/11/2024 11:36 AM EDT): >>ASSESSMENT AND PLAN FOR SCIATICA WRITTEN ON 01/17/2024 8:13 PM BY JONE MELENDEZ MD Chem renal fucntion wnl and wnl CBC [...] -if no better RTC may need PT Arthritis of spine 04/25/2022 Chronic pain of both knees 04/25/2022 Mass of lower limb 04/25/2022 Pain of right great toe 04/25/2022 Tinea corporis 04/25/2022 Type 2 diabetes mellitus 04/25/2022 Assessment & Plan (12/16/2024 1:47 PM EDT): Better control but A1c not at goal yet. I sent a new prescription for Ozempic 1 mg and asked the pharmacy to have a ride so that she can start PINEDA. She will follow-up with me in 4 to 5 weeks Continue Lantus 35 units + Jardiance + metformin Counseled re more frequent low calorie/carb meals, we discussed about prevention of hypoglycemia as I noticed that patient has not had breakfast this morning, we discussed about having smaller unfractioned meals, she could have a portion of cheese, fruit or peanut butter for breakfast. Check fgstk 2x daily Encouraged physical activity as tolerated. Assessment & Plan (09/11/2024 11:50 AM EDT): Uncontrolled, advised to restart Ozempic at 0.5 mg/week and follow-up with CD[facility] program next month, I will follow-up with her in 2 months. Continue Lantus 35 units + Jardiance + metformin 500 mg twice daily + NovoLog Counseled re more frequent low calorie/carb meals, we discussed about prevention of hypoglycemia as I noticed that patient has not had breakfast this morning, we discussed about having smaller unfractioned meals, she could have a portion of cheese, fruit or peanut butter for breakfast. Check fgstk 2x daily Encouraged physical activity as tolerated. Assessment & Plan (06/17/2024 3:13 PM EST): [...] in 4 wks, I will refer to [facility] clinic Assessment & Plan (11/27/2022 10:10 AM [...] 10/20/2016 Essential hypertension 03/08/2015 Assessment & Plan (06/30/2024 11:50 AM EST): Patient today is visibly upset, this may be the reason for high blood pressure, she is clinically asymptomatic I advise low Na diet and to take medications without missing a dose I instructed to log her BP and bring it for next appointment Assessment & Plan (06/17/2024 3:14 PM EST): [...] Mild persistent asthma 03/08/2015 Assessment & Plan (09/11/2024 11:50 AM EDT): Controlled, she has not had recent exacerbations, she uses albuterol as needed only Assessment & Plan (01/03/2024 9:29 AM EDT): [...] patient so she can schedule appointment at [facility] Assessment & Plan (09/18/2022 11:03 AM [...] Encounters Date Type Department Care Team Description 02/19/2025 11:15 AM EDT Procedure Visit [facility] [address] [place] [phone] Ashwini Johnson MD Encounter for cervical Pap smear with pelvic exam (Primary Dx); Screening mammogram for breast cancer; Vaccination declined; Acute right-sided back pain with sciatica; Plantar fasciitis; Class 3 severe obesity due to excess calories with serious comorbidity and body mass index (BMI) of 40.0 to 44.9 in adult (HCC) 02/19/2025 Travel 02/18/2025 Telephone [facility] [address] [place] [phone] Ashwini Johnson MD PT referral 02/18/2025 Telephone [facility] [address] [place] [address] [phone] Ashwini Johnson MD CHART PREP 02/13/2025 Telephone [facility] [address] [place] [phone] Ashwini Johnson MD 02/10/2025 Refill [facility] [address] [place] [address] [phone] Ashwini Johnson MD 01/12/2025 [facility] Health Information Management [address] [place] [phone] sAhwini Johnson MD 01/06/2025 Refill [facility] [address] [place] [address] [phone] Ashwini Johnson MD 01/04/2025 Refill [facility] [address] [place] [phone] Ashwini Johnson MD Type 2 diabetes mellitus with other specified complication, unspecified whether detention insulin use ([facility]) 12/16/2024 11:15 AM EDT Office Visit [facility] [address] [place] [address] [phone] Ashwini Johnson MD Type 2 diabetes mellitus with hyperglycemia, with long-term current use of insulin ([facility]) (Primary Dx); Diabetic polyneuropathy associated with type 2 diabetes mellitus ([facility]); Class 3 severe obesity due to excess calories with serious comorbidity and body mass index (BMI) of 40.0 to 44.9 in adult; Lipoma of lower extremity, unspecified laterality; Preventative health care; Exercise counseling; Breast screening; Dietary counseling 12/16/2024 Telephone [facility] [address] [place] [address] Ashwini Johnson MD MAMMO ORDER FAXED 12/16/2024 Travel 12/15/2024 Telephone [facility] [address] [place], [place] [phone] Ashwini Johnson MD chart prep 12/09/2024 Refill [facility] [address] [place], [place] [phone] Ashwini Johnson MD 11/19/2024 Refill [facility] [address] [place], [place] [phone] Jone Slaughter MD Diabetic polyneuropathy associated with type 2 diabetes mellitus ([facility]) from Last 3 Months Immunizations Immunization Administration Dates Next Due Hep B, adult [...] 20 02/19/2025 10:54 AM EDT Oxygen Saturation 98% 12/16/2024 10:22 AM EDT Inhaled Oxygen Concentration - - Weight 103 kg (227 lb 9.6 oz) 02/19/2025 10:54 A M EDT Height 154.9 cm (5' 1 ) 02/19/2025 10:54 AM EDT Body Mass Index 43 02/19/2025 10:54 AM EDT Plan of Treatment Upcoming Encounters Date Type Department Care Team (Late st Contact Info) Description 02/27/2025 11:00 AM EDT Medication Management [facility] [address] [place] [address] [phone] Hector Dillon, PharmD [address] [place], [place] [phone] 05/22/2025 10:30 AM EST Office Visit [facility] [address] [place] [address] [phone] Ashwini Johnson MD [address] [place], [place] [phone] Health Maintenance Due Date Last Done Comments CT Colonography 1960 FIT DNA/Cologuard 1960 FIT 1960 FOBT 1960 Sigmoidoscopy 1960 Disability Screening 1960 Alcohol/Substance Use Screening 1972 Pap Smear 1981 Cervical Cancer Screening 1990 HPV/Cotest 1990 Pneumococcal Vaccine: 50+ Years (2 of 2 - PCV) 04/12/2016 04/12/2015, 07/09/2007, 02/25/2002 RSV Patients and Patients Aged 60 years or older (1 - Risk 60-74 years 1-dose series) 2020 Mammogram 11/25/2023 11/24/2022, 07/09/2021, 11/22/2021, Additional history exists DTaP/Tdap/Td Vaccines (3 - Td or Tdap) 07/03/2024 07/03/2014, 07/03/2014, 06/26/2008 Depression Screening 07/26/2024 07/27/2023, 07/27/19 24 COVID-19 Vaccine ( season) 2024 Influenza Vaccine (#1) 2024 8, 02/02/2017, 01/14/2015, Additional history exists Diabetes: Hemoglobin A1C 03/18/2025 025, 09/11/2024, 04/14/2024, Additional history exists SDOH Screening 09/03/2025 09/03/2024 Diabetes: Urine Protein Screening 09/17/2025 09/17/2024, 09/18/2022, 03/15/2022, Additional history exists Lipid Panel 09/17/2025 09/17/2024, 01/28, 06/20/2023, Additional history exists Eye Exam 10/23/2025 10/23/2024 Diabetes: Foot Exam 12/16/2025 12/16/2024, 12/16/2024, 12/16/2024, Additional history exists Tobacco Screening 12/16/2025 12/16/2024 Colonoscopy 07/01/2034 07/01/2024, 06/12/2019 Colorectal Cancer Screening 07/01/2034 Hepatitis B Vaccines Completed 01/27/2015, 11/26/2014, 07/03/2014 [...] patient's age to complete this topic Meningococcal B Vaccine Aged Out No l onger eligible based on patient's age to complete [...] 10:34 AM EDT) No Hector Dillon PharmD Procedures Procedure Name Priority Date/Time Associated Diagnosis Comments POCT GLYCATED HEMOGLOBIN, TOTAL Routine 12/16/2024 10:34 AM EDT Type 2 diabetes mellitus with hyperglycemia, with long-term current use of insulin ([facility]) POCT GLUCOSE Routine 12/16/2024 10:23 AM EDT Type 2 diabetes mellitus with hyperglycemia, with long-term current use of insulin ([facility]) ALBUMIN, RANDOM URINE W/CREATININE Routine 09/17/2024 8:07 AM EDT LIPID PANEL, STANDARD Routine 09/17/2024 8:07 AM EDT HM COLONOSCOPY Routine 07/01/2024 8:44 AM EST BI MAMMOGRAM SCREENING TOMOSYNTHESIS BILATERAL Routine 11/24/2022 11:45 AM EDT HIV 1/2 ANTIGEN/ANTIBODY, FOURTH GENERATION W/RFL Routine 03/15/2022 8:37 AM EST from Last 3 Months or Most Recently Relevant to Health Maintenance Results * (ABNORMAL) POCT HGB A1C (12/16/2024 10:34 AM EDT) Hemoglobin A1C 8.4(A) 4.0 - 5.7 % QC Media Lot # [id number] Lot# Expiration Date Blood 12/16/2024 10:3 4 AM EDT Ashwini Johnson MD POINT OF CARE TEST ENTER /EDIT ORDERABLES Final Result * POCT Glucose (12/16/2024 10:23 AM EDT) Glucose Blood, POC 144 60 - 200 mg/dL Comment:random QC Media Lot # [id number] Lot# Expiration Date 379, Blood Capillary blood specimen / Unknown 12/16/2024 10:23 AM EDT Ashwini Johnson MD POINT OF CARE TEST ENTER /EDIT ORDERABLES Final Result * Albumin, Random Urine W/Creatinine (09/17/2024 8:07 AM EDT) Creatinine, Urine 219.07 mg/dL [facility] Microalbumin Urine 32.0 mg/L [facility] Microalbum Creatinine Ratio Ur 14.6 <30 ug/mg cr [facility] Comment:Albumin/Creatinine R atio Reference Ranges: Normal: < 30 ug/mg creatinine Microalbuminuria: 30 - 300 ug/mg creatinineClinical Albuminuria: > 300 ug/mg creatinine 09/17/2024 8:0 7 AM EDT 09/17/2024 10:59 AM EDT Ashwini Johnson MD LAB URINE ORDERABLES Fin al Result [facility] [address] [place] [phone] * (ABNORMAL) Lipid Panel, Standard (09/17/2024 8:07 AM EDT) Triglycerides 66 <150 mg/dL [facility] Comment:Desirable Triglyceri de: less than 150 mg/dLBorderline High Triglyceride 150-199 mg/dLHigh Triglyceride: 200-499 mg/dLVery High Triglyceride: greater than or equal to 5OO mg/dL Cholesterol 220(H) <200 mg/dL [facility] Comment:Desirable Cholestero l: less than 200 mg/dLBorderline High Cholesterol: 200-239 mg/dLHigh Cholesterol: greater than 239 mg/dL LDL Cholesterol Calculated 139(H) <100 mg/dL [facility] Comment:Desirable LDL: less than 100 mg/dLNear Optimal/Above Optimal LDL: 110- 129 mg/dLBorderline High LDL: 130-159 mg/dLHigh LDL: 160-189 mg/dLVery High LDL: greater than or equal to 190 mg/dL HDL Cholesterol 68 >40 mg/dL [facility] Comment:Desirable HDL: great er than 40 mg/dL Note: This HDL assay may give artificially low results in patients with liver disease. 09/17/2024 8:07 AM EDT 09/17/2024 11:04 AM EDT Ashwini Johnson MD LAB BLOOD ORDERABLES Fin al Result [facility] [address] [place] [address] [phone] * Hm Colonoscopy (07/01/2024 8:44 AM EST) us Historical Provider HEALTH MAINTENANCE Final Result * BI Mammogram Screening Tomosynthesis Bilateral (11/24/2022 11:45 AM EDT) Anatomical Region Laterality Modality Breast Bilateral Mammography 11/24/2022 11:4 5 AM EDT Narrative 12/15/2022 8:26 AM EDT [address] [place] [address] Mammography Report Signed Patient: Jone Elena MR#: [id number] : 1960 Acct:[id number] Age/Sex: 62 / F ADM Date: 11/24/22 Loc: HO.MAMMO Attending Dr: Ashwini Johnson MD Ordering Physician: Ashwini Johnson MD Results: Date of Service: 11/24/22 Follow Up: Procedure(s): MM tomosynthesis screening BI Accession Number(s): [id number] cc: Ashwini Johnson MD EXAMINATION: MM SCREENING [...] in OV> 12/15/22 0824 DD/ 1145 TD/TT: Artist And Repertoire Manager: Procedure Note Donotuseinterpreter, Image - 12/15/2022 [facility] [address] [place] [address] Mammography Report Signed Patient: Jone ElenaMR#: [id number] : 1Acct:[id number] Age/Sex: 62 / FADM Date: 11/24/22 Loc: EDDY Attending Dr: Ashwini Johnson MD Ordering Physician: Ashwini Johnson MDResults: Date of Service: 11/24/22Follow Up: Procedure(s): MM tomosynthesis screening BI Accession Number(s): [id number] cc: Ashwini Johnson MD EXAMINATION: MM SCREENING [...] in OV> 12/15/22 0824 DD/ 1145 TD/TT: Artist And Repertoire Manager: Ashwini Johnson MD IMG BI PROCEDURES Edited Result - Final * HIV 1/2 ANTIGEN/ANTIBODY,FOURTH GENERATION W/RFL (03/15/2022 8:37 AM EST) HIV-1/2 ANTIGEN AND ANTIBODIES, 4TH GENERATION W/ REFLEX NON-REACT GRZEGORZ NON-REACT GRZEGORZ [facility] LAB[facility] Comment: HIV-1 antigen and HIV-1/HIV-2 antibodies were not detected. There is no laboratory evidence of HIV infection. PLEASE NOTE: This information has been disclosed to you from records whose confidentiality may be protected by state law. If your state requires such protection, then the state law prohibits you from making any further disclosure of the information without the specific written consent of the person to whom it pertains, or as otherwise permitted by law. A general authorization for the release of medical or other information is NOT sufficient for this purpose. For additional information please refer to http://education.Face to Face Live.[email or web address]/faq/FEI451 (This link is being provided for informational/ educational purposes only.) The performance of this assay has not been clinically validated in patients less than 2 years old. 03/15/2022 8:37 AM EST Ashwini Johnson MD LAB BLOOD ORDERABLES Fin al Result CONVERTED LEGACY LABS from Last 3 Months or Most Recently Relevant to Health Maintenance Insurance [facility] C3 Care Teams Retort Cooler Relationship Specialty Start Date End Date Ashwini Johnson MD [address] [place] [address] PCP - General Family Medicine 12/11/17 Hector Dillon, AlbaD [address] [place] [address] Pharmacist Internal Medicine 07/19/23
--- OUTSIDE RECORDS SUMMARY | 2025-02-19 19:42 | XMS_ITS | Encounter Summary ---
Author Organization [employer] Address [address] [facility] [address] [place] [address] Care Team Providers Care Breeding Manager Name Role Phone Ashwini Johnson MD Primary Care Provider + Hector Dillon PharmD Unavailable [phone] Reason for Visit * Reason Onset Date Comments CHART PREP 02/18/2025 Encounter Details Date Type Department Care Team ([facility] st Contact Info) Description 02/18/2025 Telephone [facility] [address] [place], [place] [phone] Ashwini Johnson MD [address] [place], [place] [phone] CHART PREP Social History Tobacco Use Types Packs/Day Years [...] Encounter - Mita Araiza [place] - 02/18/2025 3:11 PM EDT Chart Prep Labs: not done Images: Mammo appt 02/27/25 at 11:15 am. Referrals: complete Vaccines due: Covid, Flu, PCV20, Tdap, and RSV Screenings: eye exam Overdue care gaps: A1c, Glucose, SBIRT, PHQ-9, BALTAZAR-7, Disability screen, and Tobacco documented in this encounter Plan of Treatment Upcoming Encounters Date Type Department Care Team (Late st Contact Info) Description 02/27/2025 11:00 AM EDT Medication Management [facility] [address] [place] [phone] Hector Dillon, AlbaD [address] [place] [phone] 05/22/2025 10:30 AM EST Office Visit [facility] [address] [place] [address] [phone] Ashwini Johnson MD [address] [place] [address] documented as of this encounter Goals Goal Patient Goal Type Associated Problems Recent Progress Patient-Stated? Author Blood Pressure < 140/90 Blood Pressure 122/74(2024 10:54 AM EDT) No Hector Dillon PharmD Hemoglobin A1c < 7 Result Component 8.4( 10:34 AM EDT) No Hector Dillon PharmD documented as of this encounter Visit Diagnoses Not on filedocumented in this encounter Care Teams Breeding Manager Relationship Specialty Start Date End Date Ashwini Johnson MD [address] [place] [address] PCP - General Family Medicine 12/11/17 Hector Dillon PharmD [address] [place] [address] Pharmacist Internal Medicine 07/19/23 documented as of this encounter
--- OUTSIDE RECORDS SUMMARY | 2025-02-19 19:42 | XMS_ITS | Encounter Summary ---
Author Organization [employer] Address [address] [facility] [address] [place] [address] Care Team Providers Care Direct Sales Representative Name Role Phone Ahswini Johnson MD Primary Care Provider + Hector Dillon PharmD Unavailable [phone] Reason for Visit * Reason Onset Date Comments FYI 09/19/2023 Encounter Details Date Type Department Care Team ([facility] st Contact Info) Description 09/19/2023 Telephone [facility] [address] [place], [place] [phone] Ashwini Johnson MD [address] [place], [place] [phone] FYI Social History Tobacco Use Types Packs/Day [...] 3:13 PM EDT Tc from [place] with [facility] will be faxing an evaluation summary form for pt to receive STORE SHOPPER services. documented in this encounter Plan of Treatment Upcoming Encounters Date Type Department Care Team (Late st Contact Info) Description 02/27/2025 11:00 AM EDT Medication Management [facility] [address] [place] [phone] Hector Dillon PharmD [address] [place] [phone] 05/22/2025 10:30 AM EST Office Visit [facility] [address] [place] [phone] Ashwini Johnson MD [address] [place] [address] documented as of this encounter Goals Goal Patient Goal Type Associated Problems Recent Progress Patient-Stated? Author Blood Pressure < 140/90 Blood Pressure 122/74(2024 10:54 AM EDT) No Hector Dillon, PharmKayleigh Hemoglobin A1c < 7 Result Component 8.4( 10:34 AM EDT) No Hector Dillon PharmD documented as of this encounter Visit Diagnoses Not on filedocumented in this encounter Care Teams Direct Sales Representative Relationship Specialty Start Date End Date Ashwini Johnson MD [address] [place] [phone] PCP - General Family Medicine 12/11/17 Hector Dillon, Harriet [address] [place] [address] Pharmacist Internal Medicine 07/19/23 documented as of this encounter
--- OUTSIDE RECORDS SUMMARY | 2025-02-19 19:42 | XMS_ITS | Encounter Summary ---
Author Organization [employer] [facility] [employer] Address [address] [facility] 7t [place] [address] Care Team Providers Care Imaging Assistant Name Role Phone Ashwini Johnson MD Primary Care Provider + Hector Dillon PharmD Unavailable [phone] Reason for Visit * Reason Comments Med Refill Encounter Details Date Type Department Care Team ([facility] st Contact Info) Description 11/05/[address] [facility] [address] [place], [place] [phone] Ashwini Johnson MD [address] [place], [place] [phone] Social History Tobacco Use Types Packs/Day Years [...] Description 02/27/2025 11:00 AM EDT Medication [address] [facility] [address] [place] [phone] Hector Dillon PharmD [address] [place] [address] 05/22/2025 10:30 AM EST Office Visit [address] [phone] Ashwini Johnson MD [address] [place] [phone] documented as of this encounter Goals Goal Patient Goal Type Associated Problems Recent Progress Patient-Stated? Author Blood Pressure < 140/90 Blood Pressure 122/74(2024 10:54 AM EDT) No Hector Dillon PharmD Hemoglobin A1c < 7 Result Component 8.4( 10:34 AM EDT) No Hector Dillon PharmD documented as of this encounter Visit Diagnoses Not on filedocumented in this encounter Care Teams Imaging Assistant Relationship Specialty Start Date End Date Ashwini Johnson MD [address] [place] [phone] PCP - General Family Medicine 12/11/17 Hector Dillon PharmD [address] [place] [phone] Pharmacist Internal Medicine 07/19/23 documented as of this encounter
--- OUTSIDE RECORDS SUMMARY | 2025-02-19 19:42 | XMS_ITS | Encounter Summary ---
Author Organization [employer] Address [address] [facility] [address] [place] [address] Care Team Providers Care Chimney Supervisor Brick Name Role Phone Ashwini Johnson MD Primary Care Provider + Hector Dillon PharmD Unavailable [phone] Encounter Details Date Type Department Care Team (Late st Contact Info) Description 07/03/2024 Orders Only [facility] [address] [place], [place] [phone] ProviderTracey MD Social History Tobacco Use Types [...] Description 02/27/2025 11:00 AM EDT Medication Management [facility] [address] [place] [phone] Hector Dillon PharmD [address] [place] [phone] 05/22/2025 10:30 AM EST Office Visit [facility] [address] [place] [phone] Ashwini Johnson MD [address] [place] [phone] documented as of this encounter Goals Goal Patient Goal Type Associated Problems Recent Progress Patient-Stated? Author Blood Pressure < 140/90 Blood Pressure 122/74(2024 10:54 AM EDT) No Hector Dillon PharmD Hemoglobin A1c < 7 Result Component 8.4( 10:34 AM EDT) No Hector Dillon PharmD documented as of this encounter Procedures Procedure Name Priority Date/Time Associated Diagnosis Comments HM COLONOSCOPY Routine 07/01/2024 8:44 AM EST documented in this encounter Results * Hm Colonoscopy (07/01/2024 8:44 AM EST) us Historical Provider HEALTH MAINTENANCE Final Result documented in this encounter Visit Diagnoses Not on filedocumented in this encounter Care Teams Chimney Supervisor Brick Relationship Specialty Start Date End Date Ashwini Johnson MD [address] [place] [phone] PCP - General Family Medicine 12/11/17 Hector Dillon, AlbaD [address] [place] [phone] Pharmacist Internal Medicine 07/19/23 documented as of this encounter
--- OUTSIDE RECORDS SUMMARY | 2025-02-19 19:42 | XMS_ITS | Clinical Summary ---
Author Organization [facility] Address [address] [place] [address] Phone Care Team Providers Care Nuclear Worker Technician Name Role Phone Jone Slaughter MD Primary Care Provide r Surgical History Surgery Date Site/Laterality Comments OTHER SURGICAL HISTORY PROCEDURE: SC LIG/TRNSXJ FLP TUBE ABDL/VAG APPR UNI/BI Medical History Medical History Date Comments Asthma DX:Asthma Diabetes mellitus type 2, co ntrolled, with complications (CMS/HCC V24, [facility]/HCC V28) DX:Diabetes mellitus type 2, controlled, with complications ([facility]) Heart disease DX:Heart disease Family History Medical History Relation Name Comments Arthritis Father Stroke Father Arthritis Mother Diabetes Mother Hypertension Mother Breast cancer Neg Hx Colon cancer Neg Hx Prostate cancer Neg Hx Relation Name Status Comments Father Mother Social History Tobacco Use Types Packs/Day Years Used Date Smoking Tobacco: Never Smokeless Tobacco: Never Alcohol Use Standard Drinks/Week Comments No 0 (1 standard drink = 0.6 oz pur e alcohol) Comments Unknown Sex and Gender Information Value Date Recorded Sex Assigned at Not on file Legal Sex Female 7:38 AM EST Gender Identity Not on file Sexual Orientation Not on file Obstetrics History Last Filed Vital Signs Vital Sign Reading Time Taken Comments Blood Pressure - - Pulse - - Temperature - - Respiratory Rate - - Oxygen Saturation - - Inhaled Oxygen Concentration - - Weight 98 kg (216 lb) 01/09/2023 8:33 AM EDT Height 162.6 cm (5' 4 ) 01/09/2023 8:33 AM EDT Body Mass Index 37.08 01/09/2023 8:33 AM EDT Plan of Treatment Health Maintenance Due Date Last Done Comments Colorectal Cancer Screening: Colonoscopy 1960 Diabetes: Annual Foot Exam 1970 Diabetes: Annual Retina Eye Exam 1970 Cervical Cancer Screening: Pap Smear 1981 RSV Immunization Adult Patients (1 - Risk 50-74 years 1-dose series) 2010 Pneumococcal Vaccine: 50+ Years (2 of 2 - PCV) 04/12/2016 04/12/2015, 07/09/2007, 02/25/2002 Hepatitis C Screening 05/29/2023 Social Influencers of Health Screening 05/29/2023 Depression Screening 04/30/2024 DTaP,Tdap,and Td Vaccines (3 - Td or Tdap) 07/03/2024 07/03/2014, 06/26/2008 Diabetes: Annual Urine Albumin-Creatinine Ratio (uACR) 07/22/2024 Breast Cancer Screening 11/24/2024 11/24/2022 COVID-19 Vaccine ( season) 2024 Influenza Vaccine (#1) 2024 8, 02/02/2017, 01/14/2015, Additional history exists Diabetes: Blood Sugar Control Test (HGBA1C) 03/14/2025 09/11/2024 Diabetes: Annual GFR (Glomerular Filtration Rate) 09/17/2025 09/17/2024 Hypertension/CHF/CAD Annual BMP Blood Test 09/17/2025 09/17/2024 Cholesterol Screening (Lipid Panel) 09/17/2029 09/17/2024 Hepatitis B Vaccines Completed 01/27/2015, 11/26/2014, 07/03/2014 Zoster Vaccines Completed 10/04/2020, 08/06/2020 HIV Screening Completed 03/15/2022 HIB Vaccines Aged Out No longer eligi ble based on patient's age to complete this topic HPV Vaccines Aged Out No longer eligi ble based on patient's age to complete this topic Hepatitis A Vaccines Aged Out No long er eligible based on patient's age to complete this topic IPV Vaccines Aged Out No longer eligi ble based on patient's age to complete this topic MMR Vaccines Aged Out No longer eligi ble based on patient's age to complete this topic Meningococcal ACWY Vaccine Aged Out N o longer eligible based on patient's age to complete this topic Meningococcal B Vaccine Aged Out No l onger eligible based on patient's age to complete this topic RSV Immunization Patients Under 20 months Aged Out No longer eligible based on patient's age to complete this topic Varicella Vaccines Aged Out No longer eligible based on patient's age to complete this topic Insurance MEDICAID - [place] Care Teams Nuclear Worker Technician Relationship Specialty Start Date End Date Jone Slaughter MD [address] [place] [phone] PCP - General Internal Medicine 07/22/24
--- OUTSIDE RECORDS SUMMARY | 2025-02-19 19:42 | XMS_ITS | Encounter Summary ---
Author Organization [employer] Address [address] [facility] [address] [place] [address] Care Team Providers Care Ring Sewer Name Role Phone Ashwini Johnson MD Primary Care Provider + Hector Dillon PharmD Unavailable [phone] Encounter Details Date Type Department Care Team (Latest Contact Info) Description 02/19/2025 Travel Social History Tobacco Use Types Packs/Day [...] 02/27/2025 11:00 AM EDT Medication Management [facility] [address] [place] [phone] Hector Dillon PharmD [address] [place] [phone] 05/22/2025 10:30 AM EST Office Visit [facility] [address] [place] [address] [phone] Ashwini Johnson MD [address] [place] [phone] documented as of this encounter Goals Goal Patient Goal Type Associated Problems Recent Progress Patient-Stated? Author Blood Pressure < 140/90 Blood Pressure 122/74(2024 10:54 AM EDT) No Hector Dillon PharmD Hemoglobin A1c < 7 Result Component 8.4( 10:34 AM EDT) No Hector Dillon PharmD documented as of this encounter Visit Diagnoses Not on filedocumented in this encounter Care Teams Ring Sewer Relationship Specialty Start Date End Date Ashwini Johnson MD [address] [place] [phone] PCP - General Family Medicine 12/11/17 Hector Dillon PharmD [address] [place] [address] [phone] Pharmacist Internal Medicine 07/19/23 documented as of this encounter
[2025-02-20 07:42] LABS: CT PCR NOT DETECTED (Not Detect.); NG PCR NOT DETECTED (Not Detect.)
== END 2025-02-19 18:04 | disposition home or self-care (01) ==
LOC: HO.HHCLNP 18:03
PROVIDERS: Visit Provider Internal Medicine
DX: Z01.419 Encounter for gynecological examination (general) (routine) without abnormal findings (principal); Z20.2 Contact with and (suspected) exposure to infections with a predominantly sexual mode of transmission
CPT/HCPCS: 87491; 87591; 87626; 88175